=== PATIENT | female | born 1960 | race Caucasian/White ===

== ENCOUNTER 2020-12-24 09:41 | Outpatient (CLI) | payer BC, SELFPAY ==
--- NOTE | ~2020-12-24 | XR_ITS ---
XR thoracic spine 3V DATE: 12/24/2020 10:12 INDICATION: Thoracic and low back pain after lifting heavy object TECHNIQUE: AP, lateral, swimmer views COMPARISON: None FINDINGS: There is diffuse osteopenia. There is 16 degrees levoscoliosis of the thoracic spine measur ed from T2-T8. There is mild loss of height of T9 vertebral body which may be consistent with compression fracture, likely remote. Otherwise no fracture or dislocation or bone destruction is evident. The thoracic pedicles are intact . No paraspinal soft tissue thickening. IMPRESSION: Osteopenia 16 degrees levoscoliosis of upper thoracic spine Mild loss of height of T9, likely due to remote fracture; if there is concern for recent fracture, co nsider MR thoracic spine evaluation Reviewed, dictated and finalized at location A. IMPRESSION: Osteopenia 16 degrees levoscoliosis of upper thoracic spine Mild loss of height of T9, likely due to remote fracture; if there is concern f or recent fracture, consider MR thoracic spine evaluation
--- NOTE | ~2020-12-24 | XR_ITS ---
XR lumbar spine 2-3V DATE: 12/24/2020 10:12 INDICATION: Thoracic and low back pain following lifting of heavy object TECHNIQUE: AP, lateral, coned lateral lumbosacral views COMPARISON: None FINDINGS: There is diffuse osteopenia. Included lower thoracic and lumbar pedicles are intact. No fracture or bone destruction is evident. L umbar and upper sacral interspaces appear well preserved. No spondylolisthesis. The sacroiliac joints appear normal. Abdominal aortic calcification. No apparent aneurysm is noted. IMPRESSION: Diffuse osteopenia Reviewed, dictated and finalized at location A. IMPRESSION: Diffuse osteopenia
== END 2020-12-24 09:42 | disposition home or self-care (01) ==
LOC: ANHIMG 09:47
PROVIDERS: PCP Nurse Practitioner Family; Visit Provider Nurse Practitioner Family
DX: M85.88 Other specified disorders of bone density and structure, other site (principal)
CPT/HCPCS: 72072; 72100

== ENCOUNTER 2021-01-10 13:01 | Outpatient (CLI) | payer BC, SELFPAY ==
--- NOTE | ~2021-01-10 | MR_ITS ---
EXAMINATION: MR thoracic spine wo con DATE: 01/10/2021 14:16 INDICATION: Back pain. TECHNIQUE: Magnetic resonance imaging (MRI) of the thoracic spine was performed without intravenous c ontrast. Sagittal localizer T1-weighted FSE of the cervical spine was obtained. Thoracic spine sequen mayo included sagittal T2-weighted FSE, sagittal T1-weighted FSE, sagittal STIR FSE, and axial T2-weig hted FSE. COMPARISON: Thoracic spine radiographs 12/24/2020. FINDINGS: There is thoracic kyphosis and 10 degrees thoracic levoscoliosis. There is a burst fracture of T9 superior endplates with 1/5 loss of height and bone marrow edema without retropulsion of bone fragments. The discs are bulging at T5-T6, T6-T7, T7-T8, and T8-T9 with mild central canal stenosis. There is multilevel mild facet joint osteoarthritis. No neural foraminal stenosis. The spinal cord si gnal intensity is normal. There is an 8 mm cyst in left kidney. IMPRESSION: 1. Subacute T9 burst fracture. 2. Mild thoracic spondylosis. 3. Thoracic kyphosis and levoscoliosis. Reviewed, dictated and finalized at location A.
== END 2021-01-10 13:02 | disposition home or self-care (01) ==
LOC: ANHIMG 13:04
PROVIDERS: PCP Nurse Practitioner Family; Visit Provider Nurse Practitioner Family
DX: R93.89 Abnormal findings on diagnostic imaging of other specified body structures (principal); M47.894 Other spondylosis, thoracic region
CPT/HCPCS: 72146

== ENCOUNTER 2022-08-18 14:43 | Emergency (ER) | payer OTHER, SELFPAY ==
--- NOTE | ~2022-08-18 | XR_ITS ---
XR lumbar spine 2-3V 08/18/2022 17:19 Indication: Low back pain after fall Procedure: 3 views lumbar spine Comparison: 12/24/2020 Findings: Bowel gas pattern nonobstructive with moderate colonic fecal loading. No fracture or trauma tic malalignment. No spondylolisthesis. There is mild disc narrowing at multiple levels. Sacral bernarda en are symmetric. Osteopenia. There is atherosclerosis of the aorta. Impression: 1: No acute abnormality of the lumbar spine. 2: Mild lumbar spondylosis. Reviewed, dictated and finalized at location A. [facility] Impression: 1: No acute abnormality of the lumbar spine. 2: Mild lumbar spondylosis.
--- NOTE | ~2022-08-18 | XR_ITS ---
XR wrist RT min 3V 08/18/2022 17:19 Indication: Right wrist pain Procedure: 5 views right wrist Comparison: No prior studies for comparison. Findings: There is an ossific derek dorsal to the carpal bones on the oblique view, suspicious for tr iquetral avulsion fracture. Osteopenia. No focal soft tissue abnormality. No foreign bodies. Scaphoid appears to be intact. Impression: 1: Possible triquetral avulsion fracture. Correlate for point tenderness.. Reviewed, dictated and finalized at location A. PARAM[facility]IC Impression: 1: Possible triquetral avulsion fracture. Correlate for point tenderness..
[2022-08-18 16:51] VITALS: BP 127/58; PULSE 68; RESP 16; TEMP 36.5; O2SAT 100
[2022-08-18 18:21] VITALS: BP 120/66; PULSE 68; RESP 18; TEMP 36.6; O2SAT 68
[2022-08-18 20:54] VITALS: BP 111/63; PULSE 72; RESP 16; TEMP 36.4; O2SAT 94
--- NOTE | 2022-08-18 21:28 | ED.FALL ---
HPI - Fall General Chief Complaint: Fall Stated Complaint: fall, back pain Time Seen by Provider: 08/18/22 21:16 History of Present Illness HPI Narrative: This is a 62-year-old female with past medical history of hypothyroidism, presenting the emergency department after a fall at work. Patient states she was walking backwards with a pallet, when she tripped, falling backwards primarily on her left side. She complains of 5 out of 10 low back pain that is gradually improving, 3 out of 10 left hip pain and 6 out of 10 right wrist pain. She denies chest pain, palpitations, difficulty breathing before or after the fall. Related Data Allergies Allergy/AdvReac Type Severity Reaction Status Date / Time ciprofloxacin Allergy Unknown Anaphylaxis Verified 10/18/21 14:27 CIPROFLOXACIN HCL Allergy Mild Uncoded 10/18/21 14:27 Review of Systems Review of Systems: CONSTITUTIONAL: Denies fever, chills, or sweats. EYES: Denies visual changes, redness, or discharge. ENT: Denies rhinorrhea, congestion, sore throat, or otalgia. CARDIOVASCULAR: Denies chest pain, palpitations, or edema. RESPIRATORY: Denies cough or dyspnea. GASTROINTESTINAL: Denies abdominal pain, nausea, vomiting, or diarrhea. GENITOURINARY: Denies dysuria or hematuria. SKIN: Denies rash or itching. MUSCULOSKELETAL: Back pain, wrist pain, left hip pain denies myalgia. NEUROLOGIC: Denies headache, numbness, dizziness, or weakness. PSYCHIATRIC: Denies anxiety or depression. PMFSH Past Medical History Medical History Hypothyroidism Family History Family History Sibling Family history of alcoholism Family history of heart disease in male family member before age 55 Mother Family history of emphysema Father Family history of heart disease in male family member before age 55 Acute myocardial infarction Cerebrovascular accident Family history of congestive heart failure Social History Social History (Updated 08/18/22 @ 21:35 by Titi Villegas MD) Smoking status: Never smoker Alcohol intake: never Substance use: never Exam Narrative: GENERAL: Well-developed, well-nourished, and in no acute distress. HEAD: Normocephalic, atraumatic. EYES: PERRLA and EOMI. ENT: Nares clear, no rhinorrhea or epistaxis. Mucous membranes moist. Oropharynx without tonsillar hypertrophy exudate or other lesions. NECK: Supple. No adenopathy or masses. No carotid bruits or JVD CHEST: Clear to auscultation. No respiratory distress. No wheezes rales or rhonchi HEART: Regular rate and rhythm. No murmur heard. Normal peripheral pulses. ABDOMEN: Soft, nontender, nondistended, normal active bowel sounds. BACK: No midline spine tenderness to palpation, step-off or crepitus EXTREMITIES: Point tenderness over the dorsal aspect of the right midline wrist without crepitus or step-off, otherwise normal range of motion and no deformity, normal range of motion of all other extremities. No edema. SKIN: Warm, dry, no rash. NEURO: No focal deficits. Alert and oriented x3. PSYCH: Normal mood and affect. Course Course Emergency Course: 21:30 - X-rays demonstrate changes consistent with avulsion fracture of the trapezium and the right wrist. Patient has point tenderness over same area consistent with fracture. X-ray of the lumbar spine is negative. Will place patient in a splint, assess for neurovascular status afterwards and plan for discharge with primary care follow-up. 22:00 - Patient neurovascularly intact after splint placement. Discussed return emergency precautions including signs/symptoms of neurovascular compromise and infection. The patient voiced understanding is comfortable with plan. All questions answered to her satisfaction. Vital Signs Vital signs: Vital Signs Temperature 97.7 F 08/18/22 16:51 Pulse Rate 68 08/18/22 16:51 Respiratory Rate 16
== END 2022-08-18 22:23 | disposition home or self-care (01) ==
PROVIDERS: Emergency Provider Preventive Medicine Aerospace Medicine; PCP Nurse Practitioner Family
DX: S62.111A Displaced fracture of triquetrum [cuneiform] bone, right wrist, initial encounter for closed fracture (principal); S39.92XA Unspecified injury of lower back, initial encounter; E03.9 Hypothyroidism, unspecified; W01.0XXA Fall on same level from slipping, tripping and stumbling without subsequent striking against object, initial encounter
CPT/HCPCS: 29125; 72100; 73110; 99284

== ENCOUNTER 2022-12-26 12:47 | Emergency (ER) | payer OTHER, SELFPAY ==
--- NOTE | ~2022-12-26 | XR_ITS ---
EXAMINATION: XR chest 1V DATE: 12/26/2022 14:02 INDICATION: Left arm pain. Leg weakness. TECHNIQUE: A single frontal view of the chest was obtained. COMPARISON: Chest single view 01/06/2019 FINDINGS: Calcified pulmonary nodules are consistent with old granulomatous disease. No pleural effus ion or pneumothorax. The heart size is normal. IMPRESSION: 1. No acute cardiopulmonary disease. Reviewed, dictated and finalized at location A.
--- NOTE | ~2022-12-26 | CT_ITS ---
CT ANGIOGRAM NECK AND HEAD History: Left leg weakness. Technique: Axial noncontrast imaging of the brain was performed. Serial spiral axial images through t he head and neck were then obtained during arterial phase IV injection of 100 cc of Omnipaque 350. 3- D postprocessing and MIP images were then reconstructed on the remote workstation. Dose reduction ronel hnique was used on this scan by utilizing automated exposure control and iterative reconstruction ronel hnique. The dose-length product (DLP) was 1439.90 mGy-cm. CTA neck findings: Bilateral vertebral are patent. Bilateral common carotid, internal carotid, and e xternal carotid arteries are patent. No large vessel occlusion. No stenosis or aneurysm. The proximal right internal carotid artery demonstrates 0% stenosis relative to the normal distal artery lumen di ameter. The proximal left internal carotid artery demonstrates 0% stenosis relative to the normal dis alfonso artery lumen diameter. CTA head findings: Distal vertebral arteries, basilar artery, and posterior cerebral arteries are pat ent. Distal internal carotid arteries, middle cerebral arteries, and anterior cerebral arteries are p atent. No large vessel occlusion. No aneurysm. Axial noncontrast imaging of the right demonstrates no significant abnormality. Impression: No significant abnormality seen. Reviewed, dictated and finalized at location . Impression: No significant abnormality seen.
[2022-12-26 12:55] VITALS: BP 129/68; PULSE 72; RESP 20; TEMP 36.8; O2SAT 100
[2022-12-26 13:26] VITALS: BP 137/96; PULSE 78; RESP 18; O2SAT 100
--- NOTE | 2022-12-26 13:26 | ECG_ITS ---
Measurements Intervals Nixon Rate: 66 P: 60 NM: 136 QRS: 51 QRSD: 88 T: 66 QT: 354 QTc: 373 Interpretive Statements SINUS RHYTHM POSSIBLE LEFT ATRIAL ENLARGEMENT BASELINE ARTIFACT- I, II, III, AVR, AVL, AVF, V1-V2 BORDERLINE ECG NO PREVIOUS ECG AVAILABLE FOR COMPARISON Electronically Signed On 12-26-2022 15:30:35 CDT by Ariel Weller D.O.
[2022-12-26 13:36] LABS: Basophils Absolute Auto 0.1 K/mm3 (0.0-0.1); Basophils Percent Auto 0.8 % (0.2-1.2); Eosinophils Absolute Auto 0.2 K/mm3 (0-0.3); Eosinophils Percent Auto 3.1 % (0-4.4); Hematocrit 38.9 % (37.0-47.0); Hemoglobin 12.8 g/dL (12.0-15.0); Immature Granulocyte Absolute 0.02 K/mm3 (0.00-0.031); Immature Granulocyte Percent A 0.3 % (0-0.5); Lymphocytes Absolute Auto 2.46 K/mm3 (0.9-3.2); Lymphocytes Percent Auto 33.2 % (18.3-44.2); Mean Corpuscular HGB Conc 32.9 g/dl (32-36); Mean Corpuscular Hemoglobin 32.7 pg (26-34); Mean Corpuscular Volume 99.5 fl (80-100); Mean Platelet Volume 9.6 fl (7.4-10.4); Monocytes Absolute Auto 0.4 K/mm3 (0.1-0.6); Monocytes Percent Auto 5.5 % (2.6-8.5); Neutrophils Absolute Auto 4.2 K/mm3 (1.3-6.7); Neutrophils Percent Auto 57.1 % (45.5-73.1); Platelet Count Result 339 k/mm3 (150-375); Red Blood Count 3.91 M/mm3 (4.2-5.4); Red Cell Distribution Width 13.2 % (11.5-14.5); White Blood Count 7.4 K/mm3 (4.5-10.0)
--- NOTE | 2022-12-26 13:44 | ED.GENADULT ---
HPI - General Adult General Chief complaint: Neuro Symptoms/Deficit Stated complaint: maybe having a tia Time Seen by Provider: 12/26/22 13:15 History of Present Illness HPI narrative: 62-year-old female with history of TIA presented the emergency department for evaluation of left foot numbness that occurred while she was walking at approximately 12:00. Patient states afterwards then she developed some left arm pain, patient denies any left arm numbness. Patient does have a prior history of TIA approximately 8 years ago. Upon arrival to the ED patient denies any current numbness or weakness. Patient states she was having some left arm pain but in the ED patient states that all arm pain has resolved. Patient denies any current chest pain or shortness of breath. Related Data Allergies Allergy/AdvReac Type Severity Reaction Status Date / Time ciprofloxacin Allergy Unknown Anaphylaxis Verified 12/26/22 13:29 naproxen [From Aleve] Allergy Swelling Verified 12/26/22 13:29 Review of Systems Review of Systems: All systems reviewed & are unremarkable except as noted in HPI and below PMFSH Past Medical History Medical History Hypothyroidism Family History Family History Sibling Family history of alcoholism Family history of heart disease in male family member before age 55 Mother Family history of emphysema Father Family history of heart disease in male family member before age 55 Acute myocardial infarction Cerebrovascular accident Family history of congestive heart failure Social History Social History (Updated 08/18/22 @ 21:35 by Titi Villegas MD) Smoking status: Never smoker Alcohol intake: never Substance use: never Exam Narrative: APPEARANCE: Well appearing, no pain, no distress, well-nourished. HEAD: normocephalic, atraumatic. EYES: PERRLA/EOMI, conjunctivae clear. NOSE: Normal no drainage EARS:TMS clear with good light reflex. THROAT: Pharynx clear, no exudate. NECK: Supple. No adenopathy, no masses. RESPIRATORY: Airway patent, respirations nonlabored. Clear to auscultation bilaterally, no rales, rhonchi, wheezing. CARDIOVASCULAR: Regular rate and rhythm without murmurs rubs or gallops. ABDOMINAL: Soft, nontender, nondistended, normal bowel sounds MUSCULOSKELETAL: Moves all extremities. Strength/ROM intact, No edema, No calf tenderness. NEURO: Alert. Cranial nerves II through XII intact. Grossly intact SKIN: Warm, dry. Normal Color PSYCHIATRIC: Normal affect/mood. Course Course Emergency Course: 62-year-old female presenting to the ED for evaluation intermittent left leg numbness. Patient was afebrile with no leukocytosis. Patient's CMP was similar to her baseline. Chest x-ray showed no acute cardiopulmonary malady. Patient had negative serial troponins EKG showed normal sinus rhythm. Head CT showed no evidence of acute stroke. Due to patient having prior history of TIA and having a 10 to 15-minute episode of left foot numbness patient was advised to stay for further work-up including an MRI. Case had been discussed with the hospitalist and with the neurologist and patient was accepted for admission. Patient declined to stay for evaluation. Patient was advised on the possibility of having a more severe and life-threatening stroke but patient preferred to be discharged to home. Patient's family member was present during this conversation. Patient was signed out AMA and patient was encouraged to return to the ED to complete her medical work-up and patient was also encouraged to follow-up with her primary care physician. Patient was asymptomatic and was well-appearing at time of discharge. Vital Signs Vital signs: Vital Signs Temperature 98.2 F 12/26/22 12:55 Pulse Rate 72 12/26/22 12:55 Respiratory Rate 20 12/26/22 12:55 Blood Pressure 129/68 12/26/22 12:55
[2022-12-26 13:45] LABS: Alanine Aminotransferase 19 U/L (6-35); Albumin Level 4.4 g/dL (3.5-5.1); Alkaline Phosphatase 83 U/L (38-126); Anion Gap 7 mmol/L (8-16); Aspartate Amino Transferase 25 U/L (14-36); Bilirubin,Total 0.6 mg/dL (0.2-1.3); Blood Urea Nitrogen 8 mg/dL (7-17); Calcium 9.1 mg/dL (8.4-10.2); Carbon Dioxide 26 mmol/L (22-30); Chloride 102 mmol/L (98-107); Estimated CRCL calculation 58 ml/min; Estimated Glomerular Filt Rate > 60; Glucose 79 mg/dL (65-110); Potassium 3.4 mmol/L (3.4-5.0); Sodium 135 mmol/L (137-145)
[2022-12-26 13:48] LABS: Prothrombin Time 13.2 Seconds (11.1-14.7)
[2022-12-26 13:49] LABS: Estimated CRCL calculation 51 ml/min; Estimated Glomerular Filt Rate > 60
[2022-12-26 13:49] LABS: Partial Thromboplastin Time 31.2 SECONDS (22.3-36.8)
[2022-12-26 13:56] LABS: Troponin I < 0.012 ng/mL (0.000-0.034)
[2022-12-26 16:03] VITALS: BP 145/78; PULSE 75; RESP 16; O2SAT 97
[2022-12-26 16:43] VITALS: BP 138/72; PULSE 82; RESP 16; O2SAT 100
== END 2022-12-26 16:47 | disposition left against medical advice (07) ==
PROVIDERS: Emergency Provider Emergency Medicine; PCP Nurse Practitioner Family
DX: G45.9 Transient cerebral ischemic attack, unspecified (principal); E03.9 Hypothyroidism, unspecified
CPT/HCPCS: 36415; 70496; 70498; 71045; 80053; 84484; 85025; 85610; 85730; 93005; 99284; Q9967

== ENCOUNTER 2023-01-03 08:29 | Emergency (ER) | payer OTHER, SELFPAY ==
--- NOTE | ~2023-01-03 | CT_ITS ---
EXAMINATION: CT BRAIN W/O DATE: 01/03/2023 09:52 INDICATION: Left-sided tingling. TECHNIQUE: Computed tomography (CT) of the head was performed without intravenous contrast. The dose- length product was 605.33 mGy-cm. Automated exposure control and iterative reconstruction technique w ere employed. COMPARISON: No prior studies for comparison. FINDINGS: Normal brain parenchymal volume for age. Normal boucher-white differentiation. No acute intrac ranial hemorrhage, infarction, mass or mass effect. No ventriculomegaly or midline shift. Midline sagittal images demonstrate a normal corpus callosum, c raniovertebral junction and sella turcica. Basilar cisterns are patent. Paranasal sinuses and mastoids are pneumatized. No depressed skull fractures. IMPRESSION: 1. No acute intracranial abnormality. Reviewed, dictated and finalized at location L.
[2023-01-03 08:33] VITALS: BP 146/74; PULSE 75; RESP 16; TEMP 36.2; O2SAT 98
[2023-01-03 09:31] VITALS: BP 117/66; PULSE 68; RESP 19; O2SAT 97
[2023-01-03 09:41] VITALS: PULSE 76
[2023-01-03 09:53] LABS: Basophils Percent Auto 0.6 % (0.2-1.2); Eosinophils Absolute Auto 0.2 K/mm3 (0-0.3); Eosinophils Percent Auto 2.3 % (0-4.4); Hematocrit 39.8 % (37.0-47.0); Immature Granulocyte Absolute 0.01 K/mm3 (0.00-0.031); Immature Granulocyte Percent A 0.2 % (0-0.5); Lymphocytes Absolute Auto 2.05 K/mm3 (0.9-3.2); Lymphocytes Percent Auto 31.5 % (18.3-44.2); Mean Corpuscular HGB Conc 32.7 g/dl (32-36); Mean Corpuscular Hemoglobin 32.4 pg (26-34); Mean Corpuscular Volume 99.3 fl (80-100); Mean Platelet Volume 9.6 fl (7.4-10.4); Monocytes Absolute Auto 0.3 K/mm3 (0.1-0.6); Monocytes Percent Auto 4.9 % (2.6-8.5); Neutrophils Absolute Auto 3.9 K/mm3 (1.3-6.7); Neutrophils Percent Auto 60.5 % (45.5-73.1); Platelet Count Result 315 k/mm3 (150-375); Red Blood Count 4.01 M/mm3 (4.2-5.4); White Blood Count 6.5 K/mm3 (4.5-10.0)
[2023-01-03 10:02] LABS: Alanine Aminotransferase 17 U/L (6-35); Albumin Level 3.9 g/dL (3.5-5.1); Alkaline Phosphatase 70 U/L (38-126); Anion Gap 3 mmol/L (8-16); Aspartate Amino Transferase 25 U/L (14-36); Bilirubin,Total 0.5 mg/dL (0.2-1.3); Blood Urea Nitrogen 13 mg/dL (7-17); Carbon Dioxide 30 mmol/L (22-30); Chloride 104 mmol/L (98-107); Estimated CRCL calculation 50 ml/min; Estimated Glomerular Filt Rate > 60; Glucose 113 mg/dL (65-110); Potassium 3.3 mmol/L (3.4-5.0); Sodium 137 mmol/L (137-145)
[2023-01-03 10:16] LABS: Troponin I < 0.012 ng/mL (0.000-0.034)
[2023-01-03 10:25] LABS: INR 0.9; Prothrombin Time 12.9 Seconds (11.1-14.7)
--- NOTE | 2023-01-03 11:23 | ED.NEUROSD ---
HPI - Neuro Symptoms/Deficit General Chief Complaint: Neuro Symptoms/Deficit Stated Complaint: left arm, leg numbness Time Seen by Provider: 01/03/23 09:35 Source: patient Mode of arrival: ambulatory Limitations: no limitations History of Present Illness HPI Narrative: 62-year-old here with complaints of left arm and left leg tightening and weird feeling for past few days. Patient states that she was seen here on Monday was diagnosed with TIA. However since then her symptoms have been progressively getting more frequent she states that her arm and the leg gets squeezing pain. She states her brain and her legs do not coordinate. She denied any headache. No motor weakness. Onset (ago): day(s) (3) Location: left arm and left leg History of same: Yes Severity: moderate Quality: intermittent Relieving factors: none Exacerbating factors: none Context: gradual onset On Anticoagulants: No Associated symptoms: denies other symptoms Related Data Allergies Allergy/AdvReac Type Severity Reaction Status Date / Time ciprofloxacin Allergy Unknown Anaphylaxis Verified 12/26/22 13:29 naproxen [From Aleve] Allergy Swelling Verified 12/26/22 13:29 Review of Systems Review of Systems: All systems reviewed & are unremarkable except as noted in HPI and below Constitutional: Constitutional: Reports no additional constitutional complaints Eyes: Eyes: Reports no additional eye complaints ENT: Reports system reviewed and no additional complaints, except as documented Cardiovascular: Cardiovascular: Reports no additional cardiovascular complaints Respiratory: Respiratory: Reports no additional respiratory complaints Gastrointestinal: Gastrointestinal: Reports no additional gastrointestinal complaints Musculoskeletal: Musculoskeletal: Reports no additional musculoskeletal complaints Neurologic: Reports as per HPI PMFSH Past Medical History Medical History Hypothyroidism Family History Family History Sibling Family history of alcoholism Family history of heart disease in male family member before age 55 Mother Family history of emphysema Father Family history of heart disease in male family member before age 55 Acute myocardial infarction Cerebrovascular accident Family history of congestive heart failure Social History Social History Smoking status: Never smoker Alcohol intake: never Substance use: never Exam Narrative: GENERAL: Well-appearing, well-nourished, and in no acute distress. HEAD: Normocephalic, atraumatic. EYES: PERRLA and EOMI. NECK: Supple. CHEST: Clear to auscultation. No respiratory distress. HEART: Regular rate and rhythm. No murmur heard. Normal peripheral pulses. ABDOMEN: Soft, nontender, nondistended, normal active bowel sounds. EXTREMITIES: Normal range of motion. No edema. SKIN: Warm, dry, no rash. NEURO: No focal deficits. Alert and oriented x3. PSYCH: Normal mood and affect. Course Course Emergency Course: Notified patient about her lab work, CT findings. I discussed with Dr. Frederick recommended admission for MRI. Discussed with the Dr. Douglas accepted the patient Vital Signs Vital signs: Vital Signs Temperature 36.2 C L 01/03/23 08:33 Pulse Rate 75 01/03/23 08:33 Respiratory Rate 16 01/03/23 08:33 Blood Pressure 146/74 H 01/03/23 08:33 Pulse Oximetry 98 01/03/23 08:33 Oxygen Delivery Room Air 01/03/23 08:33 Temperature 36.2 C L 01/03/23 08:33 Pulse Rate 76 01/03/23 09:41 Respiratory Rate 19 01/03/23 09:31 Blood Pressure 117/66 01/03/23 09:31 Pulse Oximetry 97 01/03/23 09:31 Oxygen Delivery Room Air 01/03/23 09:31 MDM - Neuro Symptoms/Deficit Lab Data 01/03/23 09:45 01/03/23 09:45 Labs: Lab Results 01/03/23 Range/Units 0
[2023-01-03 12:26] VITALS: BP 111/71; PULSE 68; RESP 18; O2SAT 99
[2023-01-03 13:18] VITALS: BP 122/71; PULSE 68; RESP 16; TEMP 36.6; O2SAT 98
== END 2023-01-03 13:21 | disposition left against medical advice (07) ==
LOC: ANHED 11:46 → ANH3MEDSUR 13:16
PROVIDERS: Emergency Provider Family Medicine; PCP Nurse Practitioner Family
DX: R20.0 Anesthesia of skin (principal); E03.9 Hypothyroidism, unspecified; Z86.73 Personal history of transient ischemic attack (TIA), and cerebral infarction without residual deficits
CPT/HCPCS: 36415; 70450; 80053; 84484; 85025; 85610; 99284

== ENCOUNTER 2023-01-24 07:46 | Outpatient (CLI) | payer OTHER, SELFPAY ==
--- NOTE | ~2023-01-24 | US_ITS ---
EXAMINATION: US aorta DATE: 01/24/2023 08:11 INDICATION: Family history of abdominal aortic aneurysm, current smoker, hypercholesterolemia TECHNIQUE: Grayscale, color Doppler, and pulsed Doppler images of the aorta and common iliac arteries were obtained. COMPARISON: None. FINDINGS: Maximum vascular dimensions are as follows: Proximal aorta: 2.4 cm Mid aorta: 1.7 cm Distal aorta: 1.4 cm Right common iliac artery: 1.0 cm Left common iliac artery: 1.0 cm There is no evidence of abdominal aortic aneurysm. IMPRESSION: 1. No sonographically detected abdominal aortic aneurysm. Reviewed, dictated and finalized at location A.
== END 2023-01-24 07:47 ==
PROVIDERS: PCP Nurse Practitioner Family; Visit Provider Nurse Practitioner Family
DX: Z13.6 Encounter for screening for cardiovascular disorders (principal); Z82.49 Family history of ischemic heart disease and other diseases of the circulatory system
CPT/HCPCS: 76775

== ENCOUNTER 2023-02-03 12:40 | Emergency (ER) | payer OTHER, SELFPAY ==
--- NOTE | ~2023-02-03 | XR_ITS ---
Clinical Indication: Cough PA and lateral views of the chest: Comparison: 12/26/2022 Findings: The lungs are clear, without evidence of focal consolidation or pleural effusion. Cardiome diastinal silhouette is within normal limits. Bones and soft tissues are unremarkable. Impression: Normal chest. Reviewed, dictated and finalized at location . Impression: Normal chest.
[2023-02-03 13:08] VITALS: BP 111/61; PULSE 74; RESP 18; TEMP 35.9; O2SAT 96
--- NOTE | 2023-02-03 13:37 | ED.URI ---
HPI - URI/Sore Throat General Chief Complaint: Upper Respiratory Infection Stated Complaint: flu like symptoms Time Seen by Provider: 02/03/23 13:37 Source: patient Mode of arrival: ambulatory Limitations: no limitations History of Present Illness HPI Narrative: 62-year-old female presents with complaint of cough, nasal congestion, sore throat, fatigue, body aches, intermittent fevers, nausea vomiting for the past 5 days. Reports chest pain and shortness of breath when coughing. Taking DayQuil NyQuil cold and flu with no relief of symptoms. Is able to keep down water. Took a home COVID test that was negative. Has been smoking cigarettes for 45 years. All systems reviewed and normal except as noted above. Related Data Home Medications Medication Instructions Recorded Confirmed levothyroxine 88 mcg tablet 88 mcg PO DAILY 01/03/23 02/03/23 rosuvastatin 5 mg tablet 5 mg PO DAILY 01/03/23 02/03/23 aspirin 81 mg capsule 81 mg PO DAILY 02/03/23 02/03/23 Allergies Allergy/AdvReac Type Severity Reaction Status Date / Time ciprofloxacin Allergy Unknown Anaphylaxis Verified 02/03/23 13:21 naproxen [From Aleve] Allergy Swelling Verified 02/03/23 13:21 Review of Systems Review of Systems: CONSTITUTIONAL: Reports fever, chills, or sweats. EYES: Denies visual changes, redness, or discharge. ENT: reports rhinorrhea, congestion, sore throat. Denies otalgia. CARDIOVASCULAR: Denies chest pain, palpitations, or edema. RESPIRATORY: reports cough. Denies dyspnea. GASTROINTESTINAL: Denies abdominal pain. Reports nausea, vomiting. Denies diarrhea. GENITOURINARY: Denies dysuria or hematuria. SKIN: Denies rash or itching. MUSCULOSKELETAL: Denies back pain, joint pain, or myalgia. NEUROLOGIC: Denies headache, numbness, or weakness. PSYCHIATRIC: Denies anxiety or depression. All other systems reviewed are negative, except as documented in HPI. PENDING SALE TO [facility] Past Medical History Medical History Hypothyroidism Family History Family History Sibling Family history of alcoholism Family history of heart disease in male family member before age 55 Mother Family history of emphysema Father Family history of heart disease in male family member before age 55 Acute myocardial infarction Cerebrovascular accident Family history of congestive heart failure Social History Social History Smoking status: Never smoker Alcohol intake: never Substance use: never Comments reviewed Exam Narrative: GENERAL: This is a well-nourished, well-developed patient, in no apparent distress. HEAD: normocephalic, atraumatic. EYES: PERRL. Sclera clear/white. Vision is grossly intact. EARS: External ears normal, auditory canals clear and without drainage, TMs normal without perforation. Hearing grossly intact. NOSE: External nose normal with No nasal drainage. THROAT: Mucous membranes moist, Mild erythema. No exudates or tonsillar swelling. NECK: Neck supple, non-tender without lymphadenopathy, masses or thyromegaly. CARDIOVASCULAR: Regular rate and rhythm without murmurs, gallops, or rubs. RESPIRATORY: decreased throughout all lung toney. No wheezes, rales, or rhonchi. GASTROINTESTINAL: Abdomen soft, non-tender, nondistended. Bowel sounds are active. No hepato-splenomegaly, or palpable masses. No guarding. SKIN: warm, Dry, intact with no suspicious lesions or rash, good texture and turgor. NEURO: awake, alert, and oriented to person, place and time. There were no obvious focal neurologic abnormalities. EXTREMITIES: No joint tenderness, effusion, or edema noted. Course Course Level of Care: Express Care Visit Vital Signs Vital signs: Vital Signs Temperature 35.9 C L 02/03/23 13:08 Pulse Rate 74 02/03/23 13:08 Respiratory Rate 18 02/03/23 13:08 Blood Pre
== END 2023-02-03 14:07 | disposition home or self-care (01) ==
PROVIDERS: Emergency Provider Nurse Practitioner Family; PCP Nurse Practitioner Family
DX: B34.9 Viral infection, unspecified (principal); E03.9 Hypothyroidism, unspecified; F17.210 Nicotine dependence, cigarettes, uncomplicated
CPT/HCPCS: 71046; 87804; 99213; G0463

== ENCOUNTER 2023-11-18 09:03 | Emergency (ER) | payer OTHER, SELFPAY ==
[2023-11-18] VITALS (18 sets, daily range): BP systolic 108–132; BP diastolic 60–79; PULSE 66–89; RESP 13–20; TEMP 36.6; O2SAT 94–100
[2023-11-18 09:09] LABS: Glucose Point of Care 79 mg/dl (65-105)
[2023-11-18 09:27] LABS: Basophils Absolute Auto 0.1 K/mm3 (0.0-0.1); Basophils Percent Auto 0.4 % (0.2-1.2); Eosinophils Absolute Auto 0.4 K/mm3 (0-0.3); Eosinophils Percent Auto 3.2 % (0-4.4); Hematocrit 40.8 % (37.0-47.0); Hemoglobin 13.2 g/dL (12.0-15.0); Immature Granulocyte Absolute 0.07 K/mm3 (0.00-0.031); Immature Granulocyte Percent A 0.5 % (0-0.5); Lymphocytes Absolute Auto 3.84 K/mm3 (0.9-3.2); Mean Corpuscular HGB Conc 32.4 g/dl (32-36); Mean Corpuscular Hemoglobin 32.8 pg (26-34); Mean Corpuscular Volume 101.2 fl (80-100); Mean Platelet Volume 9.7 fl (7.4-10.4); Monocytes Absolute Auto 0.8 K/mm3 (0.1-0.6); Monocytes Percent Auto 5.9 % (2.6-8.5); Neutrophils Absolute Auto 8.1 K/mm3 (1.3-6.7); Platelet Count Result 308 k/mm3 (150-375); Red Blood Count 4.03 M/mm3 (4.2-5.4); Red Cell Distribution Width 13.2 % (11.5-14.5); White Blood Count 13.3 K/mm3 (4.5-10.0)
--- NOTE | 2023-11-18 09:36 | ED.GENADULT ---
HPI - General Adult General Chief complaint: Nausea/Vomiting/Diarrhea Stated complaint: N/V/D History of Present Illness HPI narrative: 63-year-old female presenting to the emergency department for evaluation of increased generalized weakness with associated nausea and diarrhea. Patient states that yesterday in the afternoon GB gag and having some generalized weakness and tiredness and patient took a nap. Patient states she woke up at 9:30 p.m. went back to bed woke up at 4:30 a.m. and was getting ready for work. Patient states while at work she had onset some nausea and frequent stools. Patient states that she began to feel lightheaded diaphoretic and confused. EMS was called and her blood sugar was found to be 60. Patient was treated with dextrose p.o. and route. Upon arrival emergency department patient is alert oriented and denies any current abdominal pain. Patient denies any current chest pain or shortness of breath. Patient was treated with Zofran and route and states that her nausea has since resolved. Patient reports that she did not have anything to eat last night Patient was recently on a 20 mg 5 day steroid burst for neck pain. Related Data Home Medications Medication Instructions Recorded Confirmed rosuvastatin 5 mg tablet 5 mg PO DAILY 01/03/23 02/03/23 aspirin 81 mg capsule 81 mg PO DAILY 02/03/23 02/03/23 Allergies Allergy/AdvReac Type Severity Reaction Status Date / Time ciprofloxacin Allergy Unknown Anaphylaxis Verified 11/18/23 09:04 naproxen [From Aleve] Allergy Swelling Verified 11/18/23 09:04 Review of Systems Review of Systems: All systems reviewed & are unremarkable except as noted in HPI and below [facility] Past Medical History Medical History COPD (chronic obstructive pulmonary disease) History of TIA (transient ischemic attack) Hyperlipidemia Hypothyroidism Insomnia Major depression, recurrent Syncopal episodes Tobacco user Surgical History Surgical History H/O dilation and curettage H/O LEEP Family History Family History Sibling Family history of alcoholism Family history of heart disease in male family member before age 55 Hypertension Alcoholism Mother Family history of emphysema Thyroid disease Cerebrovascular accident Hypertension Alcoholism Heart disease Father Family history of heart disease in male family member before age 55 Acute myocardial infarction Cerebrovascular accident Family history of congestive heart failure Grandparent Cerebrovascular accident Social History Social History Smoking packs per day: 1 Smoking cigarettes per day: 20.0 Smoking status: Current every day smoker Tobacco type: cigarettes Alcohol intake: never Substance use: current Substance use type: marijuana Last use: every night for sleeping Lack of Transportation: No Lack of Food: Never True Current Housing: I Have Housing Concerned About Future Housing: No Difficulty Paying Gas/Electric Bills: No Difficulty Paying for Meds: No Currently Unemployed: No Education: High School Diploma/GED Difficulty w/ Childcare or Family Care: No Living arrangements: alone Occupation/Education: occupation Exam Narrative: APPEARANCE: Well appearing, no pain, no distress, well-nourished. HEAD: normocephalic, atraumatic. EYES: PERRLA/EOMI, conjunctivae clear. NOSE: Normal no drainage EARS:TMS clear with good light reflex. THROAT: Pharynx clear, no exudate. NECK: Supple. No adenopathy, no masses. RESPIRATORY: Airway patent, respirations nonlabored. Clear to auscultation bilaterally, no rales, rhonchi, wheezing. CARDIOVASCULAR: Regular rate and rhythm without murmurs rubs or gallops. ABDOMINAL: Soft, nontender, nondistended, normal bowel sounds MUSCULOSKELETAL: Moves all extremities.
[2023-11-18 09:38] LABS: Alanine Aminotransferase 15 U/L (6-35); Albumin Level 3.6 g/dL (3.5-5.1); Alkaline Phosphatase 67 U/L (38-126); Anion Gap 2 mmol/L (4-12); Aspartate Amino Transferase 19 U/L (14-36); Bilirubin,Total 0.6 mg/dL (0.2-1.3); Blood Urea Nitrogen 18 mg/dL (7-17); Calcium 8.8 mg/dL (8.4-10.2); Carbon Dioxide 31 mmol/L (22-30); Chloride 107 mmol/L (98-107); Estimated CRCL calculation 50 ml/min; Estimated Glomerular Filt Rate > 60; Glucose 79 mg/dL (65-110); Lipase 74 U/L (23-300); Potassium 3.4 mmol/L (3.4-5.0); Sodium 140 mmol/L (137-145)
[2023-11-18 10:04] LABS: Appearance Urine Clear (Clear); Bilirubin Urine Negative (Negative); Blood Urine Negative (Negative); Color Urine Yellow (Yellow); Glucose Urine UA Negative (Negative); Ketones Urine Negative (Negative); Leukocyte Esterase Ur Negative LEU/UL (Negative); Nitrate Urine Negative (Negative); Protein Urine Negative (Negative); Specific Grav Ur 1.019 (1.001-1.035); pH Urine 8.5 (5.0-9.0)
[2023-11-18 10:09] LABS: Add Urine Microscopic? NO
[2023-11-18 10:10] LABS: Influenza A QL RT-PCR Negative (Negative); Influenza B QL RT-PCR Negative (Negative); RSV RNA, RT-PCR Negative (Negative); SARS-CoV-2 RNA PCR Negative (Negative)
[2023-11-18] MEDS: SODIUM CHLORIDE 0.9% IV 1,000 ML 999 ML IV CONT (10:15)
[2023-11-18 12:31] LABS: Glucose Point of Care 124 mg/dl (65-105)
== END 2023-11-18 12:45 | disposition home or self-care (01) ==
PROVIDERS: Emergency Provider Emergency Medicine; PCP Nurse Practitioner Family
DX: E16.2 Hypoglycemia, unspecified (principal); Z20.822 Contact with and (suspected) exposure to COVID-19; J44.9 Chronic obstructive pulmonary disease, unspecified; E78.5 Hyperlipidemia, unspecified; E03.9 Hypothyroidism, unspecified; F33.9 Major depressive disorder, recurrent, unspecified; F17.210 Nicotine dependence, cigarettes, uncomplicated; Z86.73 Personal history of transient ischemic attack (TIA), and cerebral infarction without residual deficits; Z79.82 Long term (current) use of aspirin
CPT/HCPCS: 36415; 80053; 81003; 82948; 83690; 85025; 87637; 96360; 99283; J7030

== ENCOUNTER 2024-09-28 14:11 | Emergency (ER) | payer OTHER, SELFPAY ==
--- NOTE | ~2024-09-28 | CT_ITS ---
CTA brain carotid Ordering provider: Edgar Carlin PA-C History: . Dizziness, rule out LVO . Comparison: None. Technique: CT angiogram head and neck was performed following timed intravenous injection of contrast . Thin slice axial images and reformatted coronal images were obtained. Three dimensional reformatted images of the brain were also obtained using a MovieSet workstation. DLP: 1493 mGy-cm FINDINGS: HEAD: --ANTERIOR AND MIDDLE CEREBRAL ARTERIES AND BRANCHES: Normal caliber and contour. --INTRACRANIAL INTERNAL CAROTID ARTERIES: Mild atheromatous disease (right greater than left) without significant stenosis. No occlusion. --BASILAR ARTERY AND BRANCHES: Normal caliber and contour. No significant atheromatous disease. --POSTERIOR CEREBRAL ARTERIES: Normal caliber and contour --POSTERIOR COMMUNICATING ARTERIES: Not well visualized likely related to congenital absence or small size. --ANEURYSM: None visualized. --BRAIN: The ventricles are normal in size, shape and position. There is no mass, mass effect or midline shift. There is no abnormal extra-axial fluid collection or intracranial hemorrhage. Visualized paranasal sinuses are clear. The mastoid air cells are well aerated. No acute displaced fractures within the overlying cranium. NECK: --RIGHT CERVICAL CAROTID SYSTEM: Mild atheromatous disease of the carotid bulb and proximal internal carotid artery without significant stenosis. Percent stenosis per NASCET criteria is 0% No carotid d issection. --LEFT CERVICAL CAROTID SYSTEM: Mild atheromatous disease of the carotid bulb and proximal internal c arotid artery without significant stenosis. Percent stenosis per NASCET criteria is 0% No carotid di ssection. --VERTEBRAL ARTERIES: Normal caliber and contour. Right vertebral artery is dominant. --VISUALIZED AORTIC ARCH AND BRANCHING VESSELS: Mild atheromatous disease but no significant stenosis . --SOFT TISSUES: Normal. --CERVICAL SPINE: Age advanced degenerative changes. IMPRESSION: 1. Unremarkable CTA head of the and neck. Percent stenosis per NASCET criteria is 0% 2. No large vessel occlusion Reviewed, dictated and finalized at location [facility]
[2024-09-28 14:13] VITALS: BP 157/84; PULSE 69; RESP 18; TEMP 36.8; O2SAT 99
--- OUTSIDE RECORDS SUMMARY | 2024-09-28 14:14 | XMS_ITS | Encounter Summary ---
Author Organization [facility] Address 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) Social History Tobacco Use Types Packs/Day Years Used Date Smoking Tobacco: Never Assessed Comments Unknown Sex and Gender Information Value Date Recorded Sex Assigned at Not on file Legal Sex Female 5:20 AM REAL ESTATE JOB TITLES Gender Identity Not on file Sexual Orientation Not on file documented as of this encounter Plan of Treatment Not on file documented as of this encounter Procedures Procedure Name Priority Date/Time Associated Diagnosis Comments T3 FREE Routine 09/06/2006 12:05 PM REAL ESTATE JOB TITLES TSH Routine 09/06/2006 12:05 PM REAL ESTATE JOB TITLES T4 FREE Routine 09/06/2006 12:05 PM REAL ESTATE JOB TITLES documented in this encounter Results * T3 FREE (09/06/2006 12:05 PM REAL ESTATE JOB TITLES) T3 FREE 3.6 2.5 - 4.4 pg/mL INTERFACE SYSTEM 09/06/2006 12:0 5 PM REAL ESTATE JOB TITLES Gogo Dominguez MD CHEMISTRY ORDERABLES Edited Performing Organization Address [facility] de Phone Number INTERFACE SYSTEM Refer to clinic/hospital department * (ABNORMAL) TSH (09/06/2006 12:05 PM REAL ESTATE JOB TITLES) TSH 0.10(L) 0.27 - 4.20 uU/mL INTERFACE SYSTEM 09/06/2006 12:0 5 PM REAL ESTATE JOB TITLES Gogo Dominguez MD CHEMISTRY ORDERABLES Edited Performing Organization Address [facility] de Phone Number INTERFACE SYSTEM Refer to clinic/hospital department * (ABNORMAL) T4 FREE (09/06/2006 12:05 PM REAL ESTATE JOB TITLES) T4 FREE 2.0(H) 0.9 - 1.7 ng/dL INTERFACE SYSTEM 09/06/2006 12:0 5 PM REAL ESTATE JOB TITLES Gogo Dominguez MD CHEMISTRY ORDERABLES Edited Performing Organization Address [facility] Phone Number INTERFACE SYSTEM Refer to clinic/hospital department documented in this encounter Visit Diagnoses Diagnosis Toxic nodular goiter, unspecified type, without mention of thyrotoxic crisis or storm- Primary documented in this encounter Care Teams Cement Crusher Operator Relationship Specialty Start Date End Date Gogo Dominguez MD PCP - General Endocrinology 12/02/09 01/04/23 documented as of this encounter
--- OUTSIDE RECORDS SUMMARY | 2024-09-28 14:14 | XMS_ITS | Encounter Summary ---
Author Organization [facility] Address [address] [place] [address] Care Team Providers Care Thinner Sprayer Name Role Phone Gogo Dominguez MD Primary Care Provider Encounter Details Date Type Department Care Team (Latest Contact Info) Description 04/22/2008 Outpatient Historical HIS [facility] Gogo Diop, [address] [address] Unspecified Hypothyroidism Social History Tobacco Use Types Packs/Day Years Used Date Smoking Tobacco: Never Assessed Comments Unknown Sex and Gender Information Value Date Recorded Sex Assigned at Not on file Legal Sex Female 5:20 AM REGISTERED APPRAISER Gender Identity Not on file Sexual Orientation Not on file documented as of this encounter Plan of Treatment Not on file documented as of this encounter Procedures Procedure Name Priority Date/Time Associated Diagnosis Comments T3 FREE Routine 04/22/2008 1:08 PM CDT TSH Routine 04/22/2008 1:08 PM CDT T4 FREE Routine 04/22/2008 1:08 PM CDT documented in this encounter Results * TSH (04/22/2008 1:08 PM CDT) TSH 0.54 0.27 - 4.20 uU/mL [facility] Blood specimen (specimen) 04/22/2008 1:08 PM CDT 04/22/2008 1:47 PM CDT us Gogo Dominguez MD CHEMISTRY ORDERABLES Final Result Performing Organization Address [facility] Phone Number INTERFACE SYSTEM Refer to clinic/hospital department [facility] CLIA# [id number] [address] [place] [address] * T3 FREE (04/22/2008 1:08 PM CDT) T3 FREE 3.1 2.5 - 4.4 pg/mL [facility] Blood specimen (specimen) 04/22/2008 1:08 PM CDT 04/22/2008 1:47 PM CDT us Gogo Dominguez MD CHEMISTRY ORDERABLES Final Result Performing Organization Address [facility] Phone Number INTERFACE SYSTEM Refer to clinic/hospital department [facility] CLIA# [id number] [address] [place] [address] * (ABNORMAL) T4 FREE (04/22/2008 1:08 PM CDT) T4 FREE 1.8(H) 0.9 - 1.7 ng/dL [facility] Blood specimen (specimen) 04/22/2008 1:08 PM CDT 04/22/2008 1:47 PM CDT us Gogo Dominguez MD CHEMISTRY ORDERABLES Final Result Performing Organization Address [facility] Phone Number INTERFACE SYSTEM Refer to clinic/hospital department [facility] CLIA# [id number] [address] [place] [address] documented in this encounter Visit Diagnoses Diagnosis Unspecified hypothyroidism documented in this encounter Care Teams Thinner Sprayer Relationship Specialty Start Date End Date Gogo Dominguez MD PCP - General Endocrinology 12/02/09 01/04/23 documented as of this encounter
--- OUTSIDE RECORDS SUMMARY | 2024-09-28 14:14 | XMS_ITS | Encounter Summary ---
Author Organization [facility] Address [address] [place] [address] Care Team Providers Care Swimming Coach Name Role Phone Gogo Dominguez MD Primary Care Provider Encounter Details Date Type Department Care Team (Latest Contact Info) Description 08/24/2007 Outpatient Historical HIS [facility] Gogo Diop, [address] [address] Unspecified Hypothyroidism Social History Tobacco Use Types Packs/Day Years Used Date Smoking Tobacco: Never Assessed Comments Unknown Sex and Gender Information Value Date Recorded Sex Assigned at Not on file Legal Sex Female 5:20 AM ACID CUTTER Gender Identity Not on file Sexual Orientation Not on file documented as of this encounter Plan of Treatment Not on file documented as of this encounter Procedures Procedure Name Priority Date/Time Associated Diagnosis Comments T3 FREE Routine 08/24/2007 12:28 PM ACID CUTTER TSH Routine 08/24/2007 12:28 PM ACID CUTTER T4 FREE Routine 08/24/2007 12:28 PM ACID CUTTER documented in this encounter Results * TSH (08/24/2007 12:28 PM ACID CUTTER) TSH 0.81 0.27 - 4.20 uU/mL INTERFACE SYSTEM 08/24/2007 12:2 8 PM ACID CUTTER us Gogo Dominguez MD CHEMISTRY ORDERABLES Edited Performing Organization Address City/State/[facility] de Phone Number INTERFACE SYSTEM Refer to clinic/hospital department * T3 FREE (08/24/2007 12:28 PM ACID CUTTER) T3 FREE 3.4 2.5 - 4.4 pg/mL INTERFACE SYSTEM 08/24/2007 12:2 8 PM ACID CUTTER us Gogo Dominguez MD CHEMISTRY ORDERABLES Edited Performing Organization Address City/[facility] [address] [facility] Co de Phone Number INTERFACE SYSTEM Refer to clinic/hospital department * T4 FREE (08/24/2007 12:28 PM ACID CUTTER) T4 FREE 1.6 0.9 - 1.7 ng/dL INTERFACE SYSTEM 08/24/2007 12:2 8 PM ACID CUTTER us Gogo Dominguez MD CHEMISTRY ORDERABLES Edited Performing Organization Address [facility] [address]/[facility] de Phone Number INTERFACE SYSTEM Refer to clinic/hospital department documented in this encounter Visit Diagnoses Diagnosis Unspecified hypothyroidism documented in this encounter Care Teams Swimming Coach Relationship Specialty Start Date End Date Gogo Dominguez MD PCP - General Endocrinology 12/02/09 01/04/23 documented as of this encounter
--- OUTSIDE RECORDS SUMMARY | 2024-09-28 14:14 | XMS_ITS | Encounter Summary ---
Author Organization [facility] Address [address] [place] [address] Care Team Providers Care Corrections Nurse Name Role Phone Gogo Dominguez MD Primary Care Provider Encounter Details Date Type Department Care Team (Latest Contact Info) Description 01/12/2009 Outpatient Historical HIS [facility] Gogo Diop, [address] [address] Unspecified Hypothyroidism Social History Tobacco Use Types Packs/Day Years Used Date Smoking Tobacco: Never Assessed Comments Unknown Sex and Gender Information Value Date Recorded Sex Assigned at Not on file Legal Sex Female 5:20 AM DOOR TO DOOR SELLING DISTRIBUTOR Gender Identity Not on file Sexual Orientation Not on file documented as of this encounter Plan of Treatment Not on file documented as of this encounter Procedures Procedure Name Priority Date/Time Associated Diagnosis Comments VITAMIN D 25 HYDROXY Routine 01/12/2009 9:35 AM CDT T3 FREE Routine 01/12/2009 9:35 AM CDT TSH Routine 01/12/2009 9:35 AM CDT T4 FREE Routine 01/12/2009 9:35 AM CDT COMPREHENSIVE METABOLIC PANEL Routine 01/12/2009 9:35 AM CDT documented in this encounter Results * (ABNORMAL) COMPREHENSIVE METABOLIC PANEL (01/12/2009 9:35 AM CDT) ALKALINE PHOSPHATASE 70 35 - 104 U/L [facility] BILIRUBIN TOTAL 0.4 0.2 - 1.0 mg/dL [facility] CALCIUM 9.8 8.6 - 10.2 mg/dL [facility] ALBUMIN 4.2 3.4 - 4.8 g/dL [facility] CHLORIDE 105 96 - 108 mmol/L [facility] GLUCOSE 69 65 - 99 mg/dL [facility] TOTAL PROTEIN 7.1 6.3 - 8.6 g/dL [facility] POTASSIUM 3.9 3.5 - 4.9 mmol/L [facility] CREATININE 0.97(H) 0.51 - 0.95 mg/dL [facility] ALT 13 0 - 31 U/L [facility] SODIUM 141 135 - 145 mmol/L [facility] CO2 26 22 - 30 mmol/L [facility] AST 22 12 - 32 U/L [facility] BUN 8 6 - 20 mg/dL [facility] GFR, >60 >=60 mL/min/1. 7 sq meter [facility] GFR >60 >=60 mL/min/1. 7 sq meter [facility] Comment: Modification of Diet in Renal Disease (MDRD) study formula. Estimated GFR rate interpretative information for both Americans and non- Americans is available on the [facility] Intranet at: [email or web address] Select: Lab Policies and Procedures Select: Reference Ranges - GFR 01/12/2009 9:35 AM CDT 01/12/2009 9:42 AM CDT us Gogo Dominguez MD CHEMISTRY ORDERABLES Edited Performing Organization Address [facility] de Phone Number INTERFACE SYSTEM Refer to clinic/hospital department [facility] CLIA# [id number] [address] [place] [address] * T3 FREE (01/12/2009 9:35 AM CDT) T3 FREE 2.5 2.5 - 4.4 pg/mL [facility] 01/12/2009 9:35 AM CDT 01/12/2009 9:42 AM CDT us Gogo Dominguez MD CHEMISTRY ORDERABLES Final Result Performing Organization Address [facility] Phone Number INTERFACE SYSTEM Refer to clinic/hospital department [facility] CLIA# [id number] [address] [place] [address] * T4 FREE (01/12/2009 9:35 AM CDT) T4 FREE 1.3 0.9 - 1.7 ng/dL [facility] 01/12/2009 9:35 AM CDT 01/12/2009 9:42 AM CDT us Gogo Dominguez MD CHEMISTRY ORDERABLES Final Result Performing Organization Address [facility] Phone Number INTERFACE SYSTEM Refer to clinic/hospital department [facility] CLIA# [id number] [address] [place] [address] * (ABNORMAL) TSH (01/12/2009 9:35 AM CDT) TSH 13.38(H) 0.27 - 4.20 uU/mL [facility] 01/12/2009 9:35 AM CDT 01/12/2009 9:42 AM CDT us Gogo Dominguez MD CHEMISTRY ORDERABLES Final Result Performing Organization Address [facility] de Phone Number INTERFACE SYSTEM Refer to clinic/hospital department [facility] CLIA# [id number] [address] [address] * VITAMIN D 25 HYDROXY (01/12/2009 9:35 AM CDT) VITAMIN D, 25 OH, D3 43 ng/mL [facility] Comment: 25-OHD3 indicates both endogenous production and supplementation. 25-OHD2 is an indicator of exogenous sources such as diet or supplementation. Therapy is based on measurement of Total 25-OHD, with levels <20 ng/mL indicative of Vitamin D deficiency while levels between 20 ng/mL and 30 ng/mL suggest insufficiency. Optimal levels are >30 ng/mL. Lab test performed by: [facility] [address] [place] [id number] [address] SHANE OROSCO VITAMIN D, 25 OH, TOTAL 43 20 - 100 ng/mL [facility] VITAMIN D, 25 OH, D2 < 4 ng/mL [facility] 01/12/2009 9:35 AM CDT 01/12/2009 9:42 AM CDT us Gogo Dominguez MD CHEMISTRY ORDERABLES Final Result Performing Organization Address [facility] Phone Number INTERFACE SYSTEM Refer to clinic/hospital department [facility] CLIA# [id number] [address] [place] [address] documented in this encounter Visit Diagnoses Diagnosis Unspecified hypothyroidism documented in this encounter Care Teams Corrections Nurse Relationship Specialty Start Date End Date Gogo Dominguez MD PCP - General Endocrinology 12/02/09 01/04/23 documented as of this encounter
--- OUTSIDE RECORDS SUMMARY | 2024-09-28 14:14 | XMS_ITS | Clinical Summary ---
Author Organization [facility] Address [address] [place] [address] Phone Care Team Providers Care Post Anesthesia Room Nurse Name Role Phone Unavailable Primary Care Provider Unavailabl e Allergies Active Allergy Reactions Criticality Noted Date Comments Ciprofloxacin Anaphylaxis High 01/03/2023 Naproxen Hives High 01/03/2023 Medications aspirin 81 mg tablet,delayed release Take 81 mg by mouth daily. Active levothyroxine 88 mcg tablet Take 88 mcg by mouth daily in the morning. Active rosuvastatin 5 mg tablet Take 5 mg by mouth daily. Active zolpidem (AMBIEN) 5 mg tablet Take 5 mg by mouth nightly as needed for Insomnia. Active Active Problems Problem Noted Date Diagnosed Date Tobacco dependence 01/03/2023 Hyperlipidemia 01/03/2023 Hypothyroidism 01/03/2023 Arm paresthesia, left 01/03/2023 Transient alteration of awareness 01/03/2023 Subclavian artery stenosis, left 01/03/2023 Numbness and tingling of left arm and leg 2022 Family History Medical History Relation Name Comments Diabetes Brother Heart Disease Brother High Cholesterol Brother Hypertension Brother Heart Disease Father High Cholesterol Father Hypertension Father Stroke Father High Cholesterol Mother Hypertension Mother High Cholesterol Sister Relation Name Status Comments Brother Father Mother Sister Social History Tobacco Use Types Packs/Day Years Used Date Smoking Tobacco: Every Day Cigarettes 0.5 45 Smokeless Tobacco: Never Tobacco Cessation:Ready to Q uit: Not Asked; Counseling Given: Not Answered Alcohol Use Standard Drinks/Week Comments Not Currently 0 (1 standard drink = 0.6 oz pur e alcohol) Feeling Safe Answer Date Recorded Are you in a relationship wi th someone who hurts you emotionally and/or physically? No 01/04/2023 Food Insecurity Answer Date Recorded Social/Environmental Concerns No concerns Transportation Needs Answer Date Record ed Social/Environmental Concerns No concerns Housing Stability Answer Date Recorded Social/Environmental Concerns No concerns Utility Needs Answer Date Recorded Social/Environmental Concerns No concerns Comments No Sex and Gender Information Value Date Recorded Sex Assigned at Not on file Legal Sex Female 5:20 AM TERMINAL OPERATOR Gender Identity Not on file Sexual Orientation Not on file Last Filed Vital Signs Vital Sign Reading Time Taken Comments Blood Pressure 134/69 07/18/2023 3:18 PM TERMINAL OPERATOR Pulse 62 07/18/2023 3:18 PM TERMINAL OPERATOR Temperature 36.8 C (98.3 F) 01/04/2023 4:14 PM CDT Respiratory Rate 16 01/04/2023 5:12 PM CDT Oxygen Saturation 99% 07/18/2023 3:18 PM TERMINAL OPERATOR Inhaled Oxygen Concentration - - Weight 54 kg (119 lb 0.8 oz) 01/03/2023 6:11 PM CDT Height 162.6 cm (5' 4 ) 01/03/2023 6:11 PM CDT Body Mass Index 20.43 01/03/2023 6:11 PM CDT Plan of Treatment Health Maintenance Due Date Last Done Comments PNEUMOCOCCAL VACCINE 0-64 YE ARS (1 of 2 - PCV) 1981 CERVICAL CANCER SCREENING 1992 BREAST CANCER SCREENING 2002 COLORECTAL SCREENING 2007 Colorectal Cancer Screening 2007 FIT-DNA Q 3 years 2007 FIT/FOBT Q 1 year 2007 Flex Sig/CT Colonography Q 5 years 2007 ZOSTER VACCINE (1 of 2) 2012 RSV VACCINE (60+ or ) (1 - Risk 60-74 years 1-dose series) 2022 INFLUENZA VACCINE (#1) 2024 0, 05/15/2018, 05/26/2015, Additional history exists DTAP/TDAP/TD VACCINES (2 - T d or Tdap) 05/23/2028 05/23/2018 Insurance Advance Directives For more information, please contact: [phone] * Full Code (Latest Code Status on File) Date Activated Date Inactivated Comments 01/04/2023 12:26 AM 01/04/2023 9:19 PM
--- OUTSIDE RECORDS SUMMARY | 2024-09-28 14:14 | XMS_ITS | Encounter Summary ---
Author Organization [facility] Address [address] [place] [address] Care Team Providers Care Core Extruder Name Role Phone Gogo Dominguez MD Primary Care Provider Encounter Details Date Type Department Care Team (Latest Contact Info) Description 09/05/2007 Outpatient Historical [facility] Gogo Dominguez MD [address] [phone] Special Screening for Osteoporosis Social History Tobacco Use Types Packs/Day Years Used Date Smoking Tobacco: Never Assessed Comments Unknown Sex and Gender Information Value Date Recorded Sex Assigned at Not on file Legal Sex Female 5:20 AM NOTARY PUBLIC Gender Identity Not on file Sexual Orientation Not on file documented as of this encounter Plan of Treatment Not on file documented as of this encounter Visit Diagnoses Diagnosis Special screening for osteoporosis documented in this encounter Care Teams Core Extruder Relationship Specialty Start Date End Date Gogo Dominguez MD PCP - General Endocrinology 12/02/09 01/04/23 documented as of this encounter
--- NOTE | 2024-09-28 14:21 | ECG_ITS ---
Test Date: 2024-09-28 14:32:59 Measurements Intervals [place] Rate: 70 P: 56 OK: 131 QRS: 29 QRSD: 90 T: 48 QT: 373 QTc: 403 Interpretive Statements SINUS RHYTHM BASELINE ARTIFACT- I, II, III, AVR, AVL, AVF, V1-V6 NORMAL ECG No previous ECG available for comparison Electronically Signed On 09-28-2024 16:57:46 COMMUNITY NUTRITION EDUCATOR by Ariel Weller D.O.
[2024-09-28 14:26] VITALS: BP 139/93; PULSE 72; RESP 13; O2SAT 100
[2024-09-28 14:31] VITALS: PULSE 73
--- OUTSIDE RECORDS SUMMARY | 2024-09-28 14:52 | XMS_ITS | Encounter Summary ---
Author Organization [facility] Address [address] [place] [address] Care Team Providers Care Continuing Education Director Name Role Phone Gogo Dominguez MD Primary Care Provider [phone] Encounter Details Date Type Department Care Team (Latest Contact Info) Description 01/12/2009 Outpatient Historical HIS [facility] Gogo Diop, [address] [address] Unspecified Hypothyroidism Social History Tobacco Use Types Packs/Day Years Used Date Smoking Tobacco: Never Assessed Comments Unknown Sex and Gender Information Value Date Recorded Sex Assigned at Not on file Legal Sex Female 5:20 AM TAXICAB COORDINATOR Gender Identity Not on file Sexual Orientation [...] ALKALINE PHOSPHATASE 70 35 - 104 U/L [facility] BILIRUBIN TOTAL 0.4 0.2 - 1.0 mg/dL [facility] CALCIUM 9.8 8.6 - 10.2 mg/dL [facility] ALBUMIN 4.2 3.4 - 4.8 g/dL [facility] CHLORIDE 105 96 - 108 mmol/L [facility] GLUCOSE 69 65 - 99 mg/dL [facility] TOTAL PROTEIN 7.1 6.3 - 8.6 g/dL [facility] POTASSIUM 3.9 3.5 - 4.9 mmol/L [facility] CREATININE 0.97(H) 0.51 - 0.95 mg/dL [facility] ALT 13 0 - 31 U/L [facility] SODIUM 141 135 - 145 mmol/L [facility] CO2 26 22 - 30 mmol/L [facility] AST 22 12 - 32 U/L [facility] BUN 8 6 - 20 mg/dL [facility] GFR, >60 >=60 mL/min/1. 7 sq meter [facility] GFR >60 >=60 mL/min/1. 7 sq meter [facility] Comment: Modification of Diet in Renal Disease (MDRD) study formula. Estimated GFR rate interpretative information for both Americans and non- Americans is available on the [facility] Intranet at: [email or web address] Select: Lab Policies and Procedures Select: Reference Ranges - GFR 01/12/2009 9:35 AM CDT 01/12/2009 9:42 AM CDT us Gogo Dominguez MD CHEMISTRY ORDERABLES Edited Performing Organization Address [facility] de Phone Number INTERFACE SYSTEM Refer to clinic/hospital department [facility] CLIA# [id number] [address] [place] [address] * T3 FREE (01/12/2009 9:35 AM CDT) T3 FREE 2.5 2.5 - 4.4 pg/mL [facility] 01/12/2009 9:35 AM CDT 01/12/2009 9:42 AM CDT us Gogo Dominguez MD CHEMISTRY ORDERABLES Final Result Performing Organization Address [facility] Phone Number INTERFACE SYSTEM Refer to clinic/hospital department [facility] CLIA# [id number] [address] [place] [address] * T4 FREE (01/12/2009 9:35 AM CDT) T4 FREE 1.3 0.9 - 1.7 ng/dL [facility] 01/12/2009 9:35 AM CDT 01/12/2009 9:42 AM CDT us Gogo Dominguez MD CHEMISTRY ORDERABLES Final Result Performing Organization Address [facility] Phone Number INTERFACE SYSTEM Refer to clinic/hospital department [facility] CLIA# [id number] [address] [place] [address] * (ABNORMAL) TSH (01/12/2009 9:35 AM CDT) TSH 13.38(H) 0.27 - 4.20 uU/mL [facility] 01/12/2009 9:35 AM CDT 01/12/2009 9:42 AM CDT us Gogo Dominguez MD CHEMISTRY ORDERABLES Final Result Performing Organization Address [facility] de Phone Number INTERFACE SYSTEM Refer to clinic/hospital department [facility] CLIA# [id number] [address] [address] * VITAMIN D 25 HYDROXY (01/12/2009 9:35 AM CDT) VITAMIN D, 25 OH, D3 43 ng/mL [facility] Comment: 25-OHD3 indicates both endogenous production and supplementation. 25-OHD2 is an indicator of exogenous sources such as diet or supplementation. Therapy is based on measurement of Total 25-OHD, with levels <20 ng/mL indicative of Vitamin D deficiency while levels between 20 ng/mL and 30 ng/mL suggest insufficiency. Optimal levels are >30 ng/mL. Lab test performed by: [email or web address] [address] [place] [id number] [address] SHANE OROSCO VITAMIN D, 25 OH, TOTAL 43 20 - 100 ng/mL [facility] VITAMIN D, 25 OH, D2 < 4 ng/mL [facility] 01/12/2009 9:35 AM CDT 01/12/2009 9:42 AM CDT us Gogo Dominguez MD CHEMISTRY ORDERABLES Final Result Performing Organization Address [facility] Phone Number INTERFACE SYSTEM Refer to clinic/hospital department [facility] CLIA# [id number] [address] [place] [address] documented in this encounter Visit Diagnoses Diagnosis Unspecified hypothyroidism documented in this encounter Care Teams Continuing Education Director Relationship Specialty Start Date End Date Gogo Dominguez MD PCP - General Endocrinology 12/02/09 01/04/23 documented as of this encounter
--- OUTSIDE RECORDS SUMMARY | 2024-09-28 14:52 | XMS_ITS | Encounter Summary ---
Author Organization [facility] Address [address] [place] [address] Care Team Providers Care Chief Dietitian Name Role Phone Gogo Dominguez MD Primary Care Provider Encounter Details Date Type Department Care Team (Latest Contact Info) Description 08/24/2007 Outpatient Historical HIS [facility] Gogo Diop, [address] [address] Unspecified Hypothyroidism Social History Tobacco Use Types Packs/Day Years Used Date Smoking Tobacco: Never Assessed Comments Unknown Sex and Gender Information Value Date Recorded Sex Assigned at Not on file Legal Sex Female 5:20 AM POLICY LOAN CALCULATOR Gender Identity Not on file Sexual Orientation Not on file documented as of this encounter Plan of Treatment Not on file documented as of this encounter Procedures Procedure Name Priority Date/Time Associated Diagnosis Comments T3 FREE Routine 08/24/2007 12:28 PM POLICY LOAN CALCULATOR TSH Routine 08/24/2007 12:28 PM POLICY LOAN CALCULATOR T4 FREE Routine 08/24/2007 12:28 PM POLICY LOAN CALCULATOR documented in this encounter Results * TSH (08/24/2007 12:28 PM POLICY LOAN CALCULATOR) TSH 0.81 0.27 - 4.20 uU/mL INTERFACE SYSTEM 08/24/2007 12:2 8 PM POLICY LOAN CALCULATOR us Gogo Dominguez MD CHEMISTRY ORDERABLES Edited Performing Organization Address City/State/[facility] de Phone Number INTERFACE SYSTEM Refer to clinic/hospital department * T3 FREE (08/24/2007 12:28 PM POLICY LOAN CALCULATOR) T3 FREE 3.4 2.5 - 4.4 pg/mL INTERFACE SYSTEM 08/24/2007 12:2 8 PM POLICY LOAN CALCULATOR us Gogo Dominguez MD CHEMISTRY ORDERABLES Edited Performing Organization Address City/[facility] Co de Phone Number INTERFACE SYSTEM Refer to clinic/hospital department * T4 FREE (08/24/2007 12:28 PM POLICY LOAN CALCULATOR) T4 FREE 1.6 0.9 - 1.7 ng/dL INTERFACE SYSTEM 08/24/2007 12:2 8 PM POLICY LOAN CALCULATOR us Gogo Dominguez MD CHEMISTRY ORDERABLES Edited Performing Organization Address [facility] de Phone Number INTERFACE SYSTEM Refer to clinic/hospital department documented in this encounter Visit Diagnoses Diagnosis Unspecified hypothyroidism documented in this encounter Care Teams Chief Dietitian Relationship Specialty Start Date End Date Gogo Dominguez MD PCP - General Endocrinology 12/02/09 01/04/23 documented as of this encounter
--- OUTSIDE RECORDS SUMMARY | 2024-09-28 14:52 | XMS_ITS | Encounter Summary ---
Author Organization [facility] Address [address] [place] [address] Care Team Providers Care Temporary Help Agency Referral Clerk Name Role Phone Gogo Dominguez MD Primary Care Provider Encounter Details Date Type Department Care Team (Latest Contact Info) Description 09/05/2007 Outpatient Historical HIS [facility] Gogo Dominguez MD [address] [phone] Special Screening for Osteoporosis Social History Tobacco Use Types Packs/Day Years Used Date Smoking Tobacco: Never Assessed Comments Unknown Sex and Gender Information Value Date Recorded Sex Assigned at Not on file Legal Sex Female 5:20 AM SOLUTIONS EXECUTIVE SECURITY Gender Identity Not on file Sexual Orientation Not on file documented as of this encounter Plan of Treatment Not on file documented as of this encounter Visit Diagnoses Diagnosis Special screening for osteoporosis documented in this encounter Care Teams Temporary Help Agency Referral Clerk Relationship Specialty Start Date End Date Gogo Dominguez MD PCP - General Endocrinology 12/02/09 01/04/23 documented as of this encounter
--- OUTSIDE RECORDS SUMMARY | 2024-09-28 14:52 | XMS_ITS | Encounter Summary ---
Author Organization [facility] Address [address] [place] [address] Care Team Providers Care Lodge Attendant Name Role Phone Gogo Dominguez MD Primary Care Provider Encounter Details Date Type Department Care Team (Latest Contact Info) Description 04/22/2008 Outpatient Historical HIS [facility] Gogo Diop, [address] [address] Unspecified Hypothyroidism Social History Tobacco Use Types Packs/Day Years Used Date Smoking Tobacco: Never Assessed Comments Unknown Sex and Gender Information Value Date Recorded Sex Assigned at Not on file Legal Sex Female 5:20 AM MANAGER REGIONAL Gender Identity Not on file Sexual Orientation [...] CDT) TSH 0.54 0.27 - 4.20 uU/mL [facility] Blood specimen (specimen) 04/22/2008 1:08 PM CDT 04/22/2008 1:47 PM CDT us Gogo Dominguez MD CHEMISTRY ORDERABLES Final Result Performing Organization Address [facility] Phone Number INTERFACE SYSTEM Refer to clinic/hospital department [facility] CLIA# [id number] [address] [place] [address] * T3 FREE (04/22/2008 1:08 PM CDT) T3 FREE 3.1 2.5 - 4.4 pg/mL [facility] Blood specimen (specimen) 04/22/2008 1:08 PM CDT 04/22/2008 1:47 PM CDT us Gogo Dominguez MD CHEMISTRY ORDERABLES Final Result Performing Organization Address [facility] Phone Number INTERFACE SYSTEM Refer to clinic/hospital department [facility] CLIA# [id number] [address] [place] [address] * (ABNORMAL) T4 FREE (04/22/2008 1:08 PM CDT) T4 FREE 1.8(H) 0.9 - 1.7 ng/dL [facility] Blood specimen (specimen) 04/22/2008 1:08 PM CDT 04/22/2008 1:47 PM CDT us Gogo Dominguez MD CHEMISTRY ORDERABLES Final Result Performing Organization Address [facility] Phone Number INTERFACE SYSTEM Refer to clinic/hospital department [facility] CLIA# [id number] [address] [place] [address] documented in this encounter Visit Diagnoses Diagnosis Unspecified hypothyroidism documented in this encounter Care Teams Lodge Attendant Relationship Specialty Start Date End Date Gogo Dominguez MD PCP - General Endocrinology 12/02/09 01/04/23 documented as of this encounter
--- OUTSIDE RECORDS SUMMARY | 2024-09-28 14:52 | XMS_ITS | Encounter Summary ---
Author Organization [facility] Address 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) Social History Tobacco Use Types Packs/Day Years Used Date Smoking Tobacco: Never Assessed Comments Unknown Sex and Gender Information Value Date Recorded Sex Assigned at Not on file Legal Sex Female 5:20 AM DOCK LOADER Gender Identity Not on file Sexual Orientation Not on file documented as of this encounter Plan of Treatment Not on file documented as of this encounter Procedures Procedure Name Priority Date/Time Associated Diagnosis Comments T3 FREE Routine 09/06/2006 12:05 PM DOCK LOADER TSH Routine 09/06/2006 12:05 PM DOCK LOADER T4 FREE Routine 09/06/2006 12:05 PM DOCK LOADER documented in this encounter Results * T3 FREE (09/06/2006 12:05 PM DOCK LOADER) T3 FREE 3.6 2.5 - 4.4 pg/mL INTERFACE SYSTEM 09/06/2006 12:0 5 PM DOCK LOADER Gogo Dominguez MD CHEMISTRY ORDERABLES Edited Performing Organization Address [facility] de Phone Number INTERFACE SYSTEM Refer to clinic/hospital department * (ABNORMAL) TSH (09/06/2006 12:05 PM DOCK LOADER) TSH 0.10(L) 0.27 - 4.20 uU/mL INTERFACE SYSTEM 09/06/2006 12:0 5 PM DOCK LOADER Gogo Dominguez MD CHEMISTRY ORDERABLES Edited Performing Organization Address [facility] de Phone Number INTERFACE SYSTEM Refer to clinic/hospital department * (ABNORMAL) T4 FREE (09/06/2006 12:05 PM DOCK LOADER) T4 FREE 2.0(H) 0.9 - 1.7 ng/dL INTERFACE SYSTEM 09/06/2006 12:0 5 PM DOCK LOADER Gogo Dominguez MD CHEMISTRY ORDERABLES Edited Performing Organization Address [facility] Phone Number INTERFACE SYSTEM Refer to clinic/hospital department documented in this encounter Visit Diagnoses Diagnosis Toxic nodular goiter, unspecified type, without mention of thyrotoxic crisis or storm- Primary documented in this encounter Care Teams Furniture Reproducer Relationship Specialty Start Date End Date Gogo Dominguez MD PCP - General Endocrinology 12/02/09 01/04/23 documented as of this encounter
--- OUTSIDE RECORDS SUMMARY | 2024-09-28 14:52 | XMS_ITS | Clinical Summary ---
Author Organization [facility] Address [address] [place] [address] Phone Care Team Providers Care Air Motor Repairer Name Role Phone Unavailable Primary Care Provider [...] on file Legal Sex Female 5:20 AM STICKER HAND Gender Identity Not on file Sexual Orientation Not on file Last Filed Vital Signs Vital Sign Reading Time Taken Comments Blood Pressure 134/69 07/18/2023 3:18 PM STICKER HAND Pulse 62 07/18/2023 3:18 PM STICKER HAND Temperature 36.8 C (98.3 F) 01/04/2023 4:14 PM CDT Respiratory Rate 16 01/04/2023 5:12 PM CDT Oxygen Saturation 99% 07/18/2023 3:18 PM STICKER HAND Inhaled Oxygen Concentration - - Weight 54 [...] Advance Directives For more information, please contact: [phone] * Full Code (Latest Code Status on File) Date Activated Date Inactivated Comments 01/04/2023 12:26 AM 01/04/2023 9:19 PM
--- NOTE | 2024-09-28 14:56 | ED_ITS ---
HPI - Dizziness General Chief Complaint: Dizziness Stated Complaint: anxiety, nausea, R sided weakness x 1 hour Time Seen by Provider: 09/28/24 14:44 Source: patient Mode of arrival: EMS Limitations: no limitations History of Present Illness HPI Narrative: This is a 64-year-old female who presents to the ED via EMS from work today for chief complaint of sudden-onset dizziness this started while seated at work. Patient states that she was just sitting at the desk and felt like she was starting to have nausea and dizziness that came on rather abruptly. States that it felt like if she lifted her head or moved her head all it would make symptoms worse so she had to put her head down on the desk. States that she started to become anxious due to the symptoms and was having bilateral arm tingling and heaviness with the EMS crew got there. She states that those symptoms are resolving. She is not having any more shortness of breath. States that she was given Zofran en route, and overall symptoms are improving. However she states that if she turns her head to the left her dizziness comes back. Triage note mentions right-sided weakness, however patient states that she has no extremity weakness or numbness at this time. Related Data Home Medications ?Medication ?Instructions ?Recorded ?Confirmed ?Last Taken ?Type rosuvastatin 5 mg tablet 5 mg PO DAILY 01/03/23 04/24/24 Unknown History aspirin 81 mg capsule 81 mg PO DAILY 02/03/23 04/24/24 Unknown History Allergies Allergy/AdvReac Type Severity Reaction Status Date / Time ciprofloxacin Allergy Unknown Anaphylaxis Verified 09/28/24 14:33 naproxen (From Aleve) Allergy Swelling Verified 09/28/24 14:33 Review of Systems 2 Review of Systems: All systems as dictated in HPI [facility], [facility] Past Medical History Medical History COPD (chronic obstructive pulmonary disease) History of TIA (transient ischemic attack) Hyperlipidemia Hypothyroidism Insomnia Major depression, recurrent Syncopal episodes Tobacco user Surgical History Surgical History H/O dilation and curettage H/O LEEP Family History Family History (Updated 04/24/24 @ 10:31 by Delma De Souza APRN) Sibling Family history of alcoholism Family history of heart disease in male family member before age 55 Hypertension Alcoholism Bladder cancer, Onset Age: 58 brother Mother Family history of emphysema Thyroid disease Cerebrovascular accident Hypertension Alcoholism Heart disease Father Family history of heart disease in male family member before age 55 Acute myocardial infarction Cerebrovascular accident Family history of congestive heart failure Grandparent Cerebrovascular accident Social History Social History Social History: Pt is very confident in filling out medical forms. Pt has not received assistance in the last 12 months. Smoking packs per day: 1 Smoking cigarettes per day: 20.0 Smoking status: Current every day smoker Tobacco type: cigarettes Alcohol intake: never Substance use: current Substance use type: marijuana Last use: every night for sleeping Do You Feel Safe in your Home?: Yes Lack of Transportation: No Lack of Food: Never True Current Housing: I Have Housing Concerned About Future Housing: No Difficulty Paying Gas/Electric Bills: No Difficulty Paying for Meds: No Currently Unemployed: No Education: High School Diploma/GED Difficulty w/ Childcare or Family Care: No Living arrangements: alone Occupation/Education: occupation Exam 2 Narrative: GENERAL: Well-appearing, well-nourished, and in no acute distress. HEAD: Normocephalic, atraumatic. EYES: PERRLA and EOMI. ENT: Nares clear, no rhinorrhea or epistaxis. Mucous membranes moist. Oropharynx without tonsillar hypertrophy exudate or other lesions. NECK: Supple. No adenopathy or masses. CHEST: No respiratory distress. Clear to auscultation. No wheezes rales or rhonchi HEART: Regular rate and rhythm. No murmur heard. Normal peripheral pulses. ABDOMEN: Soft, nontender, nondistended, normal active bowel sounds. MSK: Normal range of motion. No edema. SKIN: Warm, dry, no rash. NEURO: Alert and oriented x4. No focal deficits. Cranial nerves 2-12 intact. Negative pronator drift bilaterally in the upper and lower extremities. 5/5 strength and sensation in the upper and lower extremities. Impulse test produces corrective saccade. Symptoms are reproducible with leftward head rotation. Symptoms are minimal with rightward rotation of the head. No nystagmus No skew deviation PSYCH: Normal mood and affect. Course Vital Signs Vital signs: Vital Signs Temperature 98.2 F 09/28/24 14:13 Pulse Rate 69 09/28/24 14:13 Respiratory Rate 18 09/28/24 14:13 Blood Pressure 157/84 H 09/28/24 14:13 Pulse Oximetry 99 09/28/24 14:13 Oxygen Delivery Room Air 09/28/24 14:13 Temperature 97.7 F 09/28/24 18:36 Pulse Rate 78 09/28/24 18:36 Respiratory Rate 12 09/28/24 18:36 Blood Pressure 115/88 09/28/24 18:36 Pulse Oximetry 96 09/28/24 18:36 Oxygen Delivery Room Air 09/28/24 14:13 MDM - Dizziness MDM Narrative Medical decision making narrative: This is a 64-year-old female who presents to the ED for chief complaint of sudden-onset dizziness that started just prior to arrival. Vitals are normal. Exam is not showing any focal neurologic deficit but is pointing towards a peripheral source of vertigo with HINTS exam. EKG shows sinus rhythm with no acute ischemia. Lab work is grossly unremarkable. CTA brain carotid: IMPRESSION: 1. Unremarkable CTA head of the and neck. Percent stenosis per NASCET criteria is 0% 2. No large vessel occlusion Patient is well-appearing on re-evaluation. Her symptoms have largely subsided. She still has some and dizziness that comes on with leftward rotation of the head which is consistent with her initial exam. She was given meclizine and Reglan p.o. here. She is feeling ready to go home at this point. Presentation does not seem consistent with CVA today due to episodic, positional nature of the vertigo. Most likely consistent with BPPV. She is ambulating without difficulty. Rx for meclizine given. Patient will be discharged in stable condition. Supportive measures discussed and return precautions given. Patient is understanding and agreeable with plan for discharge with PCP follow-up. Lab Data 09/28/24 15:57 09/28/24 16:17 Labs: Lab Results 09/28/24 09/28/24 Range/Units 15:57 16:17 WBC 6.3 (4.5-10.0) K/mm3 RBC 4.02 L (4.2-5.4) M/mm3 Hgb 12.9 (12.0-15.0) g/dL Hct 39.5 (37.0-47.0) % MCV 98.3 (80-100) fl MCH 32.1 (26-34) pg MCHC 32.7 (32-36) g/dl RDW 12.9 (11.5-14.5) % Plt Count 309 (150-375) k/mm3 MPV 9.5 (7.4-10.4) fl Immature Gran % (Auto) 0.3 (0-0.5) % Neut % (Auto) 54.0 (45.5-73.1) % Lymph % (Auto) 33.2 (18.3-44.2) % [place] % (Auto) 6.4 (2.6-8.5) % Eos % (Auto) 5.1 H (0-4.4) % Baso % (Auto) 1.0 (0.2-1.2) % Lymph # (Auto) 2.08 (0.9-3.2) K/mm3 [place] # (Auto) 0.4 (0.1-0.6) K/mm3 Eos # (Auto) 0.3 (0-0.3) K/mm3 Baso # (Auto) 0.1 (0.0-0.1) K/mm3 Abs Immat Gran (auto) 0.02 (0.00-0.031) K/mm3 Absolute Neuts (auto) 3.4 (1.3-6.7) K/mm3 Absolute Nucleated RBC 0.000 (0.0-0.012) K/mm3 Nucleated RBC % 0.0 (0.0-0.2) % PT 12.7 (11.1-14.7) Seconds INR 0.9 APTT 29.8 (22.3-36.8) Seconds Sodium 139 (137-145) mmol/L Potassium 3.6 (3.4-5.0) mmol/L Chloride 103 (98-107) mmol/L Carbon Dioxide 28 (22-30) mmol/L Anion Gap 8 (4-12) mmol/L BUN 20 H (7-17) mg/dL Creatinine 0.89 1.00 (0.7-1.0) mg/dL Estim Creat Clear Calc 50 45 ml/min Estimated GFR > 60 56 L (59 - ) Glucose 86 (65-110) mg/dL Calcium 9.4 (8.4-10.2) mg/dL Total Bilirubin 0.5 (0.2-1.3) mg/dL AST 30 (14-36) U/L ALT 31 (6-35) U/L Alkaline Phosphatase 75 (38-126) U/L Troponin I < 0.012 (0.000-0.034) ng/mL Total Protein 7.0 (6.3-8.2) g/dL Albumin 3.9 (3.5-5.1) g/dL Urine Color Yellow (Yellow) Urine Appearance Clear (Clear) Urine pH 7.0 (5.0-9.0) Ur Specific [place] 1.011 (1.001-1.035) Urine Protein Negative (Negative) mg/dL Urine Glucose (UA) Negative (Negative) mg/dL Urine Ketones Negative (Negative) mg/dL Ur Blood (Man) Negative (Negative) Urine Nitrate Negative (Negative) Urine Bilirubin Negative (Negative) Urine Urobilinogen 0.2 (<2.0) mg/dL Leukocyte Esterase Rfl Negative (Negative) TEVIN/UL Discharge Plan Discharge Clinical Impression: Benign paroxysmal positional vertigo Patient Disposition: Home, Self-Care Condition: Stable Instructions: Antibiotic Form, Dizziness (ED) Additional Instructions: Your exam today was reassuring overall. Please follow-up with PCP for vertigo. Take meclizine as needed for vertigo symptoms. If you have any new or worsening symptoms please return to the ER for further evaluation. Patient Language: Maltese Prescriptions: New meclizine 25 mg tablet 25 mg PO TID PRN (Reason: dizziness) Qty: 30 0RF No Action aspirin 81 mg Capsule 81 mg PO DAILY rosuvastatin 5 mg tablet 5 mg PO DAILY cyclobenzaprine 10 mg tablet 10 mg PO TID PRN (Reason: muscle spasm) Qty: 90 0RF levothyroxine 75 mcg tablet 75 mcg PO DAILY Qty: 90 1RF bupropion HCl 300 mg tablet extended release 24 hr 300 mg PO QAM Qty: 90 0RF zolpidem [Ambien] 5 mg tablet 5 mg PO QHS Qty: 30 0RF Rx Instructions: Max dose of 1 tab (5 mg) nightly. Follow-up/Referrals: Delma De Souza APRN [Primary Care Provider] - Stand Alone Forms: Work/School Release IP Time of Disposition: 17:50
[2024-09-28 16:00] VITALS: BP 135/75; PULSE 68; RESP 19; O2SAT 100
[2024-09-28 16:08] LABS: Basophils Absolute Auto 0.1 K/mm3 (0.0-0.1); Eosinophils Absolute Auto 0.3 K/mm3 (0-0.3); Eosinophils Percent Auto 5.1 % (0-4.4); Hematocrit 39.5 % (37.0-47.0); Hemoglobin 12.9 g/dL (12.0-15.0); Immature Granulocyte Absolute 0.02 K/mm3 (0.00-0.031); Immature Granulocyte Percent A 0.3 % (0-0.5); Lymphocytes Absolute Auto 2.08 K/mm3 (0.9-3.2); Lymphocytes Percent Auto 33.2 % (18.3-44.2); Mean Corpuscular HGB Conc 32.7 g/dl (32-36); Mean Corpuscular Hemoglobin 32.1 pg (26-34); Mean Corpuscular Volume 98.3 fl (80-100); Mean Platelet Volume 9.5 fl (7.4-10.4); Monocytes Absolute Auto 0.4 K/mm3 (0.1-0.6); Monocytes Percent Auto 6.4 % (2.6-8.5); Neutrophils Absolute Auto 3.4 K/mm3 (1.3-6.7); Platelet Count Result 309 k/mm3 (150-375); Red Blood Count 4.02 M/mm3 (4.2-5.4); Red Cell Distribution Width 12.9 % (11.5-14.5); White Blood Count 6.3 K/mm3 (4.5-10.0)
[2024-09-28 16:10] LABS: Add Urine Microscopic? NO; Appearance Urine Clear (Clear); Bilirubin Urine Negative (Negative); Blood Urine Negative (Negative); Color Urine Yellow (Yellow); Glucose Urine UA Negative (Negative); Ketones Urine Negative (Negative); Leukocyte Esterase Ur Negative LEU/UL (Negative); Nitrate Urine Negative (Negative); Protein Urine Negative (Negative); Specific Grav Ur 1.011 (1.001-1.035); Urobilinogen Urine 0.2 mg/dL (<2.0)
[2024-09-28 16:22] LABS: INR 0.9; Prothrombin Time 12.7 Seconds (11.1-14.7)
[2024-09-28 16:22] LABS: Estimated CRCL calculation 45 ml/min; Estimated Glomerular Filt Rate 56
[2024-09-28 16:23] LABS: Partial Thromboplastin Time 29.8 Seconds (22.3-36.8)
[2024-09-28 16:36] LABS: Alanine Aminotransferase 31 U/L (6-35); Albumin Level 3.9 g/dL (3.5-5.1); Alkaline Phosphatase 75 U/L (38-126); Anion Gap 8 mmol/L (4-12); Aspartate Amino Transferase 30 U/L (14-36); Bilirubin,Total 0.5 mg/dL (0.2-1.3); Blood Urea Nitrogen 20 mg/dL (7-17); Calcium 9.4 mg/dL (8.4-10.2); Carbon Dioxide 28 mmol/L (22-30); Chloride 103 mmol/L (98-107); Estimated CRCL calculation 50 ml/min; Estimated Glomerular Filt Rate > 60; Glucose 86 mg/dL (65-110); Potassium 3.6 mmol/L (3.4-5.0); Sodium 139 mmol/L (137-145)
[2024-09-28 16:46] LABS: Troponin I < 0.012 ng/mL (0.000-0.034)
[2024-09-28] MEDS: MECLIZINE HCL 25 MG TABLET PO (18:21)
[2024-09-28] MEDS: METOCLOPRAMIDE HCL 10 MG TABLET PO (18:21)
[2024-09-28 18:36] VITALS: BP 115/88; PULSE 78; RESP 12; TEMP 36.5; O2SAT 96
== END 2024-09-28 18:38 | disposition home or self-care (01) ==
PROVIDERS: Emergency Provider Physician Assistant; PCP Nurse Practitioner Family
DX: H81.10 Benign paroxysmal vertigo, unspecified ear (principal); J44.9 Chronic obstructive pulmonary disease, unspecified; E78.5 Hyperlipidemia, unspecified; E03.9 Hypothyroidism, unspecified; F33.9 Major depressive disorder, recurrent, unspecified; F17.210 Nicotine dependence, cigarettes, uncomplicated; Z86.73 Personal history of transient ischemic attack (TIA), and cerebral infarction without residual deficits; Z79.899 Other long term (current) drug therapy; Z79.82 Long term (current) use of aspirin
CPT/HCPCS: 36415; 70496; 70498; 80053; 81003; 84484; 85025; 85610; 85730; 93005; 96361; 96374; 99284; A9270; Q9967

== ENCOUNTER 2025-05-05 10:12 | Outpatient (CLI) | payer OTHER, SELFPAY ==
--- OUTSIDE RECORDS SUMMARY | 2024-12-25 05:00 | XMS_ITS ---
Author Organization [facility] Address [address] [place], [place] [id number] Care Team Providers Care Non Ferrous Material Handler Name Role Phone DELMA CHANCE Unavailable [phone] Delma De Souza Unavailable Unavailable Allergies Allergen (clinical drug ingredient) Drug/Non Drug Allergy documented on EMR Reaction Allergy Type Onset Date Status ciprofloxacin Cipro Unknown Drug Allergy Act isabella REASON FOR VISIT L foot pain and ankle Medications Medication SIG (Take, Route, Frequency, Duration) Notes Start Date End Date Status Zolpidem Tartrate 5 MG 1 tablet at bedti me as needed Orally Once a day Active buPROPion HCl ER (XL) 150 MG 1 tablet in the morning Orally Once a day Active Levothyroxine Sodium 75 MCG 1 tablet in the morning on an empty stomach Orally Once a day Active Social History Tobacco Use: Social History Observation Description Date Details (start date - stop date) Current Smoker NA - NA Tobacco Control (Standard) Question Answer Notes Tobacco use: Current every day smoker Vital Signs Height 64 in 12/25/2024 Weight 135 lbs 12/25/2024 BMI 23.17 kg/m2 12/25/2024 Height-cm 162.56 cm 12/25/2024 Weight-kg 61.24 kg 12/25/2024 Encounters Encounter Location Date Provider Diagnosis [facility] [address] [place], [place] [id number] 12/25/2024 DELMA CHANCE Posterior tibial tendinitis, left leg M76.822 ; Metatarsalgia, left foot M77.42 and Pain in left foot M79.672 Assessments Encounter Date Diagnosis (ICD Code) Assessment Notes Treatment Notes Treatment Clinical Notes Section Notes 12/25/2024 Posterior tibial tendinitis, left leg (ICD-10 - M76.822) An unna boot was applied to the affected foot. The patient was instructed to keep it dry and clean for 3-7 days. She will begin using the CAM boot that she already owns. She will wear it daily. She will rest and elevate often. ice as needed for pain. Transition to stretches and orthotics in supportive shoes in 2 weeks if pain is controlled. 12/25/2024 Metatarsalgia, left foot (ICD-10 - M77.42) padded unna boot to offload met heads left foot. 12/25/2024 Pain in left foot (ICD-10 - M79.672) Patient was instructed to try an OTC topical pain reliever/anti-i nflammatory such as Voltaren Gel, Aspercreme with Lidocaine, or Biofreeze etc over the affected areas. Spot test on hand or somewhere visible prior to starting to watch for possible rash/allergic reaction. Ice and ibuprofen as needed for pain. Plan Of Treatment Treatment Notes Assessment Notes Posterior tibial tendinitis, left leg An unna boot was applied to the affected foot. The patient was instructed to keep it dry and clean for 3-7 days. She will begin using the CAM boot that she already owns. She will wear it daily. She will rest and elevate often. ice as needed for pain. Transition to stretches and orthotics in supportive shoes in 2 weeks if pain is controlled. Metatarsalgia, left foot padded unna nina t to offload met heads left foot. Pain in left foot Patient was instructed to try an OTC topical pain reliever/anti-inflammatory such as Voltaren Gel, Aspercreme with Lidocaine, or Biofreeze etc over the affected areas. Spot test on hand or somewhere visible prior to starting to watch for possible rash/allergic reaction. Ice and ibuprofen as needed for pain. Next Appt Details Follow Up: 3 Weeks, Reason: Progress Notes * Daxa MONTOYA MDOB:1960 ( 65 yo F)Acc No.[id number]:12/25/2024 Progress Notes Patient: Daxa DE LUNA Provider: Gela CHANCE :1960 A ge:64 Y S ex:Female Date:12/25/2024 Address:[address] [place], [place] [id number] Subjective: * Chief Complaints: * 1 . L foot pain and ankle. * HPI: H PI: New Complaint P atient presents for a new patient consultation., Patient complains of an issue to pain on the top of the left foot during most of the day. Patient states that there is pain on the medial side of the left foot during the night. She states that the pain is a shooting pain. She states that she got new shoes about a month ago but has been wearing the brand for quite some time now. She does not remember any injury to the foot. , MA: tana. * ROS: G eneral / Constitutional: Patient complains of p ain. M usculoskeletal: Patient complains of j oint stiffness, arch pain, flat feet/ planus, joint pain, arthritis. P eripheral Vascular: Patient denies b lood clots in legs, cold extremities, ulceration of feet, pain / cramping in legs after exertion. P atient complains of e ash. ? S kin: Patient denies f ungal nails, athletes foot, rash, ingrown nails. N eurologic: Patient denies b alance difficulty, Numbness. ? * Medical History: L eg/Feet cramps, Thyroid Disease. * Surgical History: D enies Past Surgical History. * Hospitalization/Major Diagno stic Procedure: D enies Past Hospitalization. * Family History: F ather: , stroke, heart disease, High Blood Pressure. M other: , Respiratory Disease, lung disease, thyroid disease. * Social History: T obacco Use: T obacco Control (Standard) T obacco use: C urrent every day smoker. * Medications: T aking Zolpidem Tartrate 5 MG Tablet 1 tablet at bedtime as needed Orally Once a day , Taking buPROPion HCl ER (XL) 150 MG Tablet Extended Release 24 Hour 1 tablet in the morning Orally Once a day , Taking Levothyroxine Sodium 75 MCG Tablet 1 tablet in the morning on an empty stomach Orally Once a day , Medication List reviewed and reconciled with the patient * Allergies: C ipro: Allergy. Objective: * Vitals: S hoe Size: 7.5, Wt:135lbs, Wt-k.24 kg, Ht: 64 in, Ht-cm: 162.56 cm, BMI:23.17Index, Body Surface Area: 1.66. * Examination: C onstitutional: Constitutional T he patient is awake, alert, well developed, well groomed and well nourished.. D ermatologic: Skin findings: b ilateral, Skin is warm, dry, supple with no breaks in the skin.. M usculoskeletal: Muscle Strength M uscle strength is 5/5 in regards to dorsiflexion, plantarflexion, inversion, and eversion in bilateral lower extremities.. Foot Structure T he foot structure is noted to be, planus, left, There is calcaneus valgus and f orefoot valgus noted. Pain on palpation T here is pain on palpation of posterior tibial t endon of the left foot. T here is mild pain on open ROM to all MTPJs left without restriction in ROM and increased pain on weight bearing and push off at ball of left foot with noted too many toes sign. no fat pad atrophy.. 1st MPJ T here is a small dorsal prominence noted over 1st and 2nd left MTPJ, There is mild hypermobility noted at the 1st metatarsal cuneiform joint.. Chiquis's sign T here is a negative chiquis's sign left. N eurologic: Gross sensation G ross sensation is intact to light touch..? V ascular: Dorsalis pedis pulse: b ilateral, 2/4. Posterior tibial pulse: b ilaterally, 2/4. Capillary refill: b ilaterally, less than 3 seconds. Edema: l eft, foot, non-pitting edema, to the level of the midfoot.. X -Ray: Left Foot 3 views (AP, Medial Oblique, and lateral view) weightbearing of the left foot: N o evidence of fracture, dislocation, or other osseous lesions. Noted reduction o f the medial longitudinal arch and calcaneal inclination angle. . Assessment: * Assessment: 1. P osterior tibial tendinitis, left leg - M76.822 (Primary) 2 . M etatarsalgia, left foot - M77.42 3 . P ain in left foot - M79.672 Plan: * Treatment: 2. M etatarsalgia, left foot Notes: padded unna boot to offload met heads left foot. 3. P ain in left foot Notes: Patient was instructed to try an OTC topical pain reliever/anti-inflammatory such as Voltaren Gel, Aspercreme with Lidocaine, or Biofreeze etc over the affected areas. Spot test on hand or somewhere visible prior to starting to watch for possible rash/allergic reaction. Ice and ibuprofen as needed for pain. * Immunizations: Immunization record has been reviewed and updated. * Procedure Codes: 7 3630 X-RAY EXAM OF FOOT, Modifiers: LT , 84892 APPLICATION OF PASTE BOOT, Modifiers: LT * Preventive Medicine: Counseling: S moking: P atient counselled on the dangers of tobacco use and urged to quit. 0 12/25/2024. * Follow Up: 3 Weeks * Billing Information: * Visit Code: 62984 Office Visit, New Pt., Level 3. Modifiers: 25 * Procedure Codes: 86131 X-RAY EXAM [place] FOOT. [place]: [place] [address]93 APPLICATION OF PASTE BOOT. Modifiers: LT * Electronic signature of ELI CHANCE DPM on 05/05/2025 at 11:18 AM CDT Sign off status: Pending * Provider: Gela CHANCE Date: 0 12/25/2024 Generated for Keke arteaga/Matt/Yodit on: 0 05/05/2025 11:18 AM CDT History and Physical Notes * HPI (History of Present Illness) Category Sub-Category Detail Notes Category Not es HPI New Complaint Patient presents for a new patient consultation., Patient complains of an issue to pain on the top of the left foot during most of the day. Patient states that there is pain on the medial side of the left foot during the night. She states that the pain is a shooting pain. She states that she got new shoes about a month ago but has been wearing the brand for quite some time now. She does not remember any injury to the foot. , MA: mca Examination Category Sub-Category Detail Notes Category Not es Constitutional Constitutional The patient is a wake, alert, well developed, well groomed and well nourished. Dermatologic Skin findings: bilateral, Skin is warm, dry, supple with no breaks in the skin. Musculoskeletal Muscle Strength Muscle strength is 5/5 in regards to dorsiflexion, plantarflexion, inversion, and eversion in bilateral lower extremities. Pain on palpation There is pain on pal pation of posterior tibial tendon of the left foot. There is mild pain on open ROM to all MTPJs left without restriction in ROM and increased pain on weight bearing and push off at ball of left foot with noted too many toes sign. no fat pad atrophy. 1st MPJ There is a small joie dexter prominence noted over 1st and 2nd left MTPJ, There is mild hypermobility noted at the 1st metatarsal cuneiform joint. Foot Structure The foot structure i s noted to be, planus, left, There is calcaneus valgus and forefoot valgus noted Chiquis's sign There is a negative chiquis's sign left Neurologic Gross sensation Gross sensation is intact to light touch. X-Ray Left Foot 3 views (AP, Med ial Oblique, and lateral view) weightbearing of the left foot: No evidence of fracture, dislocation, or other osseous lesions. Noted reduction of the medial longitudinal arch and calcaneal inclination angle. Vascular Dorsalis pedis pulse: bilateral, 2/4 Posterior tibial pulse: bilaterally, 2/4 Capillary refill: bilaterally, less th an 3 seconds Edema: left, foot, non-ashley ing edema, to the level of the midfoot.
--- OUTSIDE RECORDS SUMMARY | 2025-01-08 05:10 | XMS_ITS ---
Author Organization [facility] Address [address] [place], [place] [id number] Care Team Providers Care Grinder Machine Knife Setter Name Role Phone MERONDELMA Unavailable [phone] Delma De Souza Unavailable Unavailable Allergies Allergen (clinical drug ingredient) Drug/Non Drug Allergy documented on EMR Reaction Allergy Type Onset Date Status ciprofloxacin Cipro Unknown Drug Allergy Act isabella REASON FOR VISIT unna boot follow-up Medications Medication SIG (Take, Route, Frequency, Duration) Notes Start Date End Date Status Zolpidem Tartrate 5 MG 1 tablet at bedti me as needed Orally Once a day Active Levothyroxine Sodium 75 MCG 1 tablet in the morning on an empty stomach Orally Once a day Active buPROPion HCl ER (XL) 150 MG 1 tablet in the morning Orally Once a day Active Clotrimazole 1 % 1 application Refractory Mixer ally Twice a day; Duration: 30 days 01/08/2025 07/06/2025 Active Social History Tobacco Use: Social History Observation Description Date Details (start date - stop date) Current Smoker NA - NA Tobacco Control (Standard) Question Answer Notes Tobacco use: Current every day smoker Vital Signs Height 64 in 01/08/2025 Weight 135 lbs 01/08/2025 BMI 23.17 kg/m2 01/08/2025 Height-cm 162.56 cm 01/08/2025 Weight-kg 61.24 kg 01/08/2025 Encounters Encounter Location Date Provider Diagnosis [facility] [address] [place], [place] [id number] 01/08/2025 DELMA CHANCE Posterior tibial tendinitis, left leg M76.822 ; Metatarsalgia, left foot M77.42 ; Pain in left foot M79.672 ; Tinea unguium B35.1 ; Ingrowing nail L60.0 and Pain in right foot M79.671 Assessments Encounter Date Diagnosis (ICD Code) Assessment Notes Treatment Notes Treatment Clinical Notes Section Notes 01/08/2025 Posterior tibial tendinitis, left leg (ICD-10 - M76.822) Transition from CAM boot to shoes at home then once all day at home, she will transition at work. Ice as needed for pain. Transition to stretches and orthotics in supportive shoes. 01/08/2025 Metatarsalgia, left foot (ICD-10 - M77.42) currently resolved. Will monitor. 01/08/2025 Pain in left foot (ICD-10 - M79.672) Patient was instructed to try an OTC topical pain reliever/anti-i nflammatory such as Voltaren Gel, Aspercreme with Lidocaine, or Biofreeze etc over the affected areas. Spot test on hand or somewhere visible prior to starting to watch for possible rash/allergic reaction. Ice and ibuprofen as needed for pain. 01/08/2025 Tinea unguium (ICD-10 - B35.1) 01/08/2025 Ingrowing nail (ICD-10 - L60.0) She opted not to have nail procedure today due to wanting to have left foot recovered first and will look at options for 1-2 weeks from now for matrixectomy. 01/08/2025 Pain in right foot (ICD-10 - M79.671) Dispensed foam pad and advised on soaking with epsom salt daily. Plan Of Treatment Medication Medication Name Sig Start Date Stop Date Notes Clotrimazole 1 % 1 application Refractory Mixer ally Twice a day; Duration: 30 days 01/08/2025 07/06/2025 Treatment Notes Assessment Notes Posterior tibial tendinitis, left leg Transition from CAM boot to shoes at home then once all day at home, she will transition at work. Ice as needed for pain. Transition to stretches and orthotics in supportive shoes. Metatarsalgia, left foot currently resol duane. Will monitor. Pain in left foot Patient was instructed to try an OTC topical pain reliever/anti-inflammatory such as Voltaren Gel, Aspercreme with Lidocaine, or Biofreeze etc over the affected areas. Spot test on hand or somewhere visible prior to starting to watch for possible rash/allergic reaction. Ice and ibuprofen as needed for pain. Ingrowing nail She opted not to hav e nail procedure today due to wanting to have left foot recovered first and will look at options for 1-2 weeks from now for matrixectomy. Pain in right foot Dispensed foam pad a nd advised on soaking with epsom salt daily. Progress Notes * Daxa MONTOYA MDOB:1960 ( 65 yo F)Acc No.[id number]:01/08/2025 Patient: Daxa DE LUNA Provider: Gela CHANCE :1960 A ge:64 Y S ex:Female Date:01/08/2025 Address:[address] [place], [place] [id number] Subjective: * Chief Complaints: * 1 . Unna boot follow-up. * HPI: H PI: New Complaint E stablished patient presents with a new complaint of right hallux ingrown nail which has been chronic but recently flared up.. F ollow Up Visit P arabella presents for follow-up visit for left cam boot. Patient states that she is having some medial foot pain but is not having any top of foot pain. She states that she wears the boot about 12 hours a day due to working. She states that she forgot the exercise papers, so she only remembered one exercise to do at home. , MA: [facility]. * ROS: G eneral / Constitutional: Patient complains of p ain. M usculoskeletal: Patient complains of j oint stiffness, arch pain, flat feet/ planus, joint pain, arthritis. P eripheral Vascular: Patient denies b lood clots in legs, cold extremities, ulceration of feet, pain / cramping in legs after exertion. P atient complains of e ash. ? S kin: Patient denies athletes foot, rash. P atient complains of i ngrown nails, discoloration, fungal nails. N eurologic: Patient denies b alance difficulty, Numbness. ? * Medical History: L eg/Feet cramps, Thyroid Disease. * Family History: F ather: , stroke, [...] well developed, well groomed and well nourished. D ermatologic: Skin findings: b ilateral, Skin is warm, dry, supple with no breaks in the skin. Ingrown Nail N ail is incurvated on the bilateral border of the right great toenail with mild erythema and non pitting edema. Severe pain in certain shoes.?There is no drainage. T here is pain on palpation. M usculoskeletal: Muscle Strength M uscle strength is 5/5 in regards to dorsiflexion, plantarflexion, inversion, and eversion in bilateral lower extremities.. Foot Structure T he foot structure is noted to be, planus, left, There is calcaneus valgus and f orefoot valgus noted. Pain on palpation T here is mild pain on medial central portion o f posterior tibial t endon of the left foot. T here is no longer any pain on open ROM to all MTPJs left without restriction in ROM. No pain on weight bearing and push off at ball of left foot. noted too many toes sign. no fat [...] of the midfoot.. X -Ray: Left Foot R eviewed previous xray 3 views (AP, Medial Oblique, and lateral [...] P ain in left foot - M79.672 4 .?Tinea unguium - B35.1 5 . I ngrowing nail - L60.0 6 . P ain in right foot - M79.671 Plan: * Treatment: 2. M etatarsalgia, left foot Notes: currently resolved. Will monitor. 3. P ain in left foot Notes: Patient was instructed to try an OTC topical pain reliever/anti-inflammatory such as Voltaren Gel, Aspercreme with Lidocaine, or Biofreeze etc over the affected areas. Spot test on hand or somewhere visible prior to starting to watch for possible rash/allergic reaction. Ice and ibuprofen as needed for pain. 4. T inea unguium Start Clotrimazole Cream, 1 %, 1 application, Externally, Twice a day, 30 days, 1 Unspecified, Refills 5. 5. I ngrowing nail Notes:She opted not to have nail procedure today due to wanting to have left foot recovered first and will look at options for 1-2 weeks from now for matrixectomy. 6. P ain in right foot Notes: Dispensed foam pad and advised on soaking with epsom salt daily. * Billing Information: * Visit Code: [id number] Office Visit, Est Pt., Level 3. * Procedure Codes: * Electronic signature of ELI CHANCE DPM on 05/05/2025 at 11:17 AM CDT Sign off status: Pending * Provider: Gela CHANCE Date: 0 01/08/2025 Generated for Keke arteaga/Matt/eTransilviaitting on: 0 05/05/2025 11:17 AM CDT History and Physical Notes * HPI (History of Present Illness) Category Sub-Category Detail Notes Category Not es HPI New Complaint Established fern ent presents with a new complaint of right hallux ingrown nail which has been chronic but recently flared up. Follow Up Visit Patient presents for follow-up visit for left cam boot. Patient states that she is having some medial foot pain but is not having any top of foot pain. She states that she wears the boot about 12 hours a day due to working. She states that she forgot the exercise papers, so she only remembered one exercise to do at home. , MA: [facility] Examination Category Sub-Category Detail Notes Category Not es Constitutional Constitutional The patient is a wake, alert, well developed, well groomed and well nourished Dermatologic Skin findings: bilateral, Skin is warm, dry, supple with no breaks in the skin Ingrown Nail Nail is incurvated o n the bilateral border of the right great toenail with mild erythema and non pitting edema. Severe pain in certain shoes. There is no drainage. There is pain on palpation Musculoskeletal Muscle Strength Muscle strength is 5/5 in regards to dorsiflexion, plantarflexion, inversion, and eversion in bilateral lower extremities. Pain on palpation There is mild pain o n medial central portion of posterior tibial tendon of the left foot. There is no longer any pain on open ROM to all MTPJs left without restriction in ROM. No pain on weight bearing and push off at ball of left foot. noted too many toes sign. no fat [...] intact to light touch. X-Ray Left Foot Reviewed previou s xray 3 views (AP, Medial Oblique, and lateral [...]
--- OUTSIDE RECORDS SUMMARY | 2025-05-05 11:17 | XMS_ITS | Encounter Summary ---
Author Organization [employer] Address 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
--- OUTSIDE RECORDS SUMMARY | 2025-05-05 11:17 | XMS_ITS | Encounter Summary ---
Author Organization [facility] Address 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 Gender Identity Not on file Sexual [...] ALKALINE PHOSPHATASE 70 35 - 104 U/L [facility] BILIRUBIN TOTAL 0.4 0.2 - 1.0 mg/dL [facility] CALCIUM 9.8 8.6 - 10.2 mg/dL [facility] ALBUMIN 4.2 3.4 - 4.8 g/dL [facility] CHLORIDE 105 96 - 108 mmol/L [facility] GLUCOSE 69 65 - 99 mg/dL [facility] TOTAL PROTEIN 7.1 6.3 - 8.6 g/dL [facility] POTASSIUM 3.9 3.5 - 4.9 mmol/L [facility] CREATININE 0.97(H) 0.51 - 0.95 mg/dL [facility] ALT 13 0 - 31 U/L [facility] SODIUM 141 135 - 145 mmol/L [facility] CO2 26 22 - 30 mmol/L [facility] AST 22 12 - 32 U/L [facility] BUN 8 6 - 20 mg/dL [facility] GFR, >60 >=60 mL/min/1. 7 sq meter [facility] GFR >60 >=60 mL/min/1. 7 sq meter [facility] Comment: Modification of Diet in Renal Disease (MDRD) study formula. Estimated GFR rate interpretative information for both Americans and non- Americans is available on the [facility] Intranet at: [email or web address] Select: Lab Policies and Procedures Select: Reference Ranges - GFR 01/12/2009 9:35 AM CDT 01/12/2009 9:42 AM CDT us Gogo Dominguez MD CHEMISTRY ORDERABLES Edited Performing Organization Address [facility] de Phone Number INTERFACE SYSTEM Refer to clinic/hospital department [facility] CLIA# [id number] [address] [place] [address] * T3 FREE (01/12/2009 9:35 AM CDT) T3 FREE 2.5 2.5 - 4.4 pg/mL [facility] 01/12/2009 9:35 AM CDT 01/12/2009 9:42 AM CDT us Gogo Dominguez MD CHEMISTRY ORDERABLES Final Result Performing Organization Address [facility] Phone Number INTERFACE SYSTEM Refer to clinic/hospital department [facility] CLIA# [id number] [address] [place] [address] * T4 FREE (01/12/2009 9:35 AM CDT) T4 FREE 1.3 0.9 - 1.7 ng/dL [facility] 01/12/2009 9:35 AM CDT 01/12/2009 9:42 AM CDT us Gogo Dominguez MD CHEMISTRY ORDERABLES Final Result Performing Organization Address [facility] Phone Number INTERFACE SYSTEM Refer to clinic/hospital department [facility] CLIA# [id number] [address] [place] [address] * (ABNORMAL) TSH (01/12/2009 9:35 AM CDT) TSH 13.38(H) 0.27 - 4.20 uU/mL [facility] 01/12/2009 9:35 AM CDT 01/12/2009 9:42 AM CDT us Gogo Dominguez MD CHEMISTRY ORDERABLES Final Result Performing Organization Address [facility] de Phone Number INTERFACE SYSTEM Refer to clinic/hospital department [facility] CLIA# [id number] [address] [address] * VITAMIN D 25 HYDROXY (01/12/2009 9:35 AM CDT) VITAMIN D, 25 OH, D3 43 ng/mL [facility] Comment: 25-OHD3 indicates both endogenous production and supplementation. 25-OHD2 is an indicator of exogenous sources such as diet or supplementation. Therapy is based on measurement of Total 25-OHD, with levels <20 ng/mL indicative of Vitamin D deficiency while levels between 20 ng/mL and 30 ng/mL suggest insufficiency. Optimal levels are >30 ng/mL. Lab test performed by: [facility] [facility] [address] [place] [id number] [address] SHANE OROSCO VITAMIN D, 25 OH, TOTAL 43 20 - 100 ng/mL [facility] VITAMIN D, 25 OH, D2 < 4 ng/mL [facility] 01/12/2009 9:35 AM CDT 01/12/2009 9:42 AM CDT us Gogo Dominguez MD CHEMISTRY ORDERABLES Final Result Performing Organization Address [facility] Phone Number INTERFACE SYSTEM Refer to clinic/hospital department [facility] CLIA# [id number] [address] [place] [address] documented in this encounter Visit Diagnoses Diagnosis Unspecified hypothyroidism documented in this encounter Care Teams Computer Specialist Relationship Specialty Start Date End Date Gogo Dominguez MD PCP - General Endocrinology 12/02/09 01/04/23 documented as of this encounter
--- OUTSIDE RECORDS SUMMARY | 2025-05-05 11:17 | XMS_ITS | Clinical Summary ---
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 Gender Identity Not on file Sexual Orientation Not on file Last Filed Vital Signs Vital Sign Reading Time Taken Comments Blood Pressure 134/69 07/18/2023 3:18 PM EDUCATIONAL TECHNOLOGIST Pulse 62 07/18/2023 3:18 PM EDUCATIONAL TECHNOLOGIST Temperature 36.8 C (98.3 F) 01/04/2023 4:14 PM CDT Respiratory Rate 16 01/04/2023 5:12 PM CDT Oxygen Saturation 99% 07/18/2023 3:18 PM EDUCATIONAL TECHNOLOGIST Inhaled Oxygen Concentration - - Weight 54 kg (119 lb 0.8 oz) 01/03/2023 6:11 PM CDT Height 162.6 cm (5' 4) 01/03/2023 6:11 PM CDT Body Mass Index 20.43 01/03/2023 6:11 PM CDT Plan of Treatment Health Maintenance Due Date Last Done Comments HPV/Cotest (21-29) 1983 CERVICAL CANCER SCREENING 1992 HPV/Cotest (30-65) 1992 PAP SMEAR 1992 BREAST CANCER SCREENING 2002 COLORECTAL SCREENING 2007 Colorectal Cancer Screening 2007 FIT-DNA Q 3 years 2007 FIT/FOBT Q 1 year 2007 Flex Sig/CT Colonography Q 5 years 2007 ZOSTER VACCINE (1 of 2) 2012 RSV VACCINE (60+ or ) (1 - Risk 60-74 years 1-dose series) 2022 INFLUENZA VACCINE (#1) 2025 , 05/15/2018, 05/26/2015, Additional history exists DTAP/TDAP/TD VACCINES (2 - T d or Tdap) 05/23/2028 05/23/2018 Insurance Advance Directives For more information, please contact: [phone] * Full Code (Latest Code Status on File) Date Activated Date Inactivated Comments 01/04/2023 12:26 AM 01/04/2023 9:19 PM
--- OUTSIDE RECORDS SUMMARY | 2025-05-05 11:17 | XMS_ITS | Encounter Summary ---
Author Organization [facility] Address 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 Gender Identity Not on file Sexual Orientation Not on file documented as of this encounter Plan of Treatment Not on file documented as of this encounter Procedures Procedure Name Priority Date/Time Associated Diagnosis Comments T3 FREE Routine 09/06/2006 12:05 PM SHAKE OUT WORKER TSH Routine 09/06/2006 12:05 PM SHAKE OUT WORKER T4 FREE Routine 09/06/2006 12:05 PM SHAKE OUT WORKER documented in this encounter Results * T3 FREE (09/06/2006 12:05 PM SHAKE OUT WORKER) T3 FREE 3.6 2.5 - 4.4 pg/mL INTERFACE SYSTEM 09/06/2006 12:0 5 PM SHAKE OUT WORKER Gogo Dominguez MD CHEMISTRY ORDERABLES Edited Performing Organization Address [facility] de Phone Number INTERFACE SYSTEM Refer to clinic/hospital department * (ABNORMAL) TSH (09/06/2006 12:05 PM SHAKE OUT WORKER) TSH 0.10(L) 0.27 - 4.20 uU/mL INTERFACE SYSTEM 09/06/2006 12:0 5 PM SHAKE OUT WORKER Gogo Dominguez MD CHEMISTRY ORDERABLES Edited Performing Organization Address [facility] de Phone Number INTERFACE SYSTEM Refer to clinic/hospital department * (ABNORMAL) T4 FREE (09/06/2006 12:05 PM SHAKE OUT WORKER) T4 FREE 2.0(H) 0.9 - 1.7 ng/dL INTERFACE SYSTEM 09/06/2006 12:0 5 PM SHAKE OUT WORKER Gogo Dominguez MD CHEMISTRY ORDERABLES Edited Performing Organization Address [facility] Phone Number INTERFACE SYSTEM Refer to clinic/hospital department documented in this encounter Visit Diagnoses Diagnosis Toxic nodular goiter, unspecified type, without mention of thyrotoxic crisis or storm- Primary documented in this encounter Care Teams Public Welfare Director Relationship Specialty Start Date End Date Gogo Dominguez MD PCP - General Endocrinology 12/02/09 01/04/23 documented as of this encounter
--- OUTSIDE RECORDS SUMMARY | 2025-05-05 11:17 | XMS_ITS | Encounter Summary ---
Author Organization [facility] Address 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 Gender Identity Not on file Sexual Orientation Not on file documented as of this encounter Plan of Treatment Not on file documented as of this encounter Procedures Procedure Name Priority Date/Time Associated Diagnosis Comments T3 FREE Routine 08/24/2007 12:28 PM SERVICE PROMOTER SALESPERSON TSH Routine 08/24/2007 12:28 PM SERVICE PROMOTER SALESPERSON T4 FREE Routine 08/24/2007 12:28 PM SERVICE PROMOTER SALESPERSON documented in this encounter Results * TSH (08/24/2007 12:28 PM SERVICE PROMOTER SALESPERSON) TSH 0.81 0.27 - 4.20 uU/mL INTERFACE SYSTEM 08/24/2007 12:2 8 PM SERVICE PROMOTER SALESPERSON us Gogo Dominguez MD CHEMISTRY ORDERABLES Edited Performing Organization Address City/State/[facility] Co de Phone Number INTERFACE SYSTEM Refer to clinic/hospital department * T3 FREE (08/24/2007 12:28 PM SERVICE PROMOTER SALESPERSON) T3 FREE 3.4 2.5 - 4.4 pg/mL INTERFACE SYSTEM 08/24/2007 12:2 8 PM SERVICE PROMOTER SALESPERSON us Gogo Dominguez MD CHEMISTRY ORDERABLES Edited Performing Organization Address City/[facility] Co de Phone Number INTERFACE SYSTEM Refer to clinic/hospital department * T4 FREE (08/24/2007 12:28 PM SERVICE PROMOTER SALESPERSON) T4 FREE 1.6 0.9 - 1.7 ng/dL INTERFACE SYSTEM 08/24/2007 12:2 8 PM SERVICE PROMOTER SALESPERSON us Gogo Dominguez MD CHEMISTRY ORDERABLES Edited Performing Organization Address [facility] de Phone Number INTERFACE SYSTEM Refer to clinic/hospital department documented in this encounter Visit Diagnoses Diagnosis Unspecified hypothyroidism documented in this encounter Care Teams Rejector Relationship Specialty Start Date End Date Gogo Dominguez MD PCP - General Endocrinology 12/02/09 01/04/23 documented as of this encounter
--- OUTSIDE RECORDS SUMMARY | 2025-05-05 11:17 | XMS_ITS | Encounter Summary ---
Author Organization [facility] Address 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 Gender Identity Not on file Sexual Orientation [...] CDT) TSH 0.54 0.27 - 4.20 uU/mL [facility] Blood specimen (specimen) 04/22/2008 1:08 PM CDT 04/22/2008 1:47 PM CDT us Gogo Dominguez MD CHEMISTRY ORDERABLES Final Result Performing Organization Address [facility] Phone Number INTERFACE SYSTEM Refer to clinic/hospital department [facility] CLIA# [id number] [address] [place] [address] * T3 FREE (04/22/2008 1:08 PM CDT) T3 FREE 3.1 2.5 - 4.4 pg/mL [facility] Blood specimen (specimen) 04/22/2008 1:08 PM CDT 04/22/2008 1:47 PM CDT us Gogo Dominguez MD CHEMISTRY ORDERABLES Final Result Performing Organization Address [facility] Phone Number INTERFACE SYSTEM Refer to clinic/hospital department [facility] CLIA# [id number] [address] [place] [address] * (ABNORMAL) T4 FREE (04/22/2008 1:08 PM CDT) T4 FREE 1.8(H) 0.9 - 1.7 ng/dL [facility] Blood specimen (specimen) 04/22/2008 1:08 PM CDT 04/22/2008 1:47 PM CDT us Gogo Dominguez MD CHEMISTRY ORDERABLES Final Result Performing Organization Address [facility] Phone Number INTERFACE SYSTEM Refer to clinic/hospital department [facility] CLIA# [id number] [address] [place] [address] documented in this encounter Visit Diagnoses Diagnosis Unspecified hypothyroidism documented in this encounter Care Teams Advertising Coordinator Relationship Specialty Start Date End Date Gogo Dominguez MD PCP - General Endocrinology 12/02/09 01/04/23 documented as of this encounter
--- OUTSIDE RECORDS SUMMARY | 2025-05-05 11:18 | XMS_ITS | Patient Health Record ---
Author Organization [facility] Address [address] [place], [place] [id number] Care Team Providers Care Associate Director Of Development Name Role Phone THEO CHANCE Unavailable [phone] Theo De Souza Unavailable Unavailable Allergies Allergen (clinical drug ingredient) Drug/Non Drug Allergy documented on EMR Reaction Allergy Type Onset Date Status ciprofloxacin Cipro Unknown Drug Allergy Act isabella Reason For Referral No Information Medications Medication SIG (Take, Route, Frequency, Duration) [...] day Active Clotrimazole 1 % 1 application [employer] [facility] Twice a day; Duration: 30 days 01/08/2025 07/06/2025 Active Social History Tobacco Use: Social History Observation Description Date Details (start date - stop date) Current Smoker NA - NA Tobacco Control (Standard) Question Answer Notes Tobacco use: Current every day smoker Vital Signs Height-cm 162.56 cm 01/08/2025 Weight-kg 61.24 kg 01/08/2025 Height 64 in 01/08/2025 Weight 135 lbs 01/08/2025 BMI 23.17 kg/m2 01/08/2025 Encounters Encounter Location Date Provider Diagnosis [facility] [place] [address] [place], [place] [id number] 12/25/2024 THEO CHANCE Posterior tibial tendinitis, left leg M76.822 ; Metatarsalgia, left foot M77.42 and Pain in left foot M79.672 [facility] [place] [address] [place], [place] [id number] 01/08/2025 THEO CHANCE Posterior tibial tendinitis, left leg M76.822 [...] boot to offload met heads left foot. 01/08/2025 Posterior tibial tendinitis, left leg (ICD-10 [...] Ice and ibuprofen as needed for pain. 12/25/2024 Pain in left foot (ICD-10 - [...] with epsom salt daily. Plan Of Treatment No Information Insurance Providers Payer Name Payer Address Payer Phone Subscriber Number Group Number Insured Name Patient Relationship to Insured Coverage Start Date Coverage End Date [facility] [address] [address] [place] [address] [id number] Daxa Montoya Self - patient is the insured Medical (General) History Medical History History ICD Code Leg/Feet cramps Thyroid Disease
[2025-05-05 11:29] LABS: Thyroid Stimulating Hormone Reflex 8.370 uIU/mL (0.465-4.68)
[2025-05-05 12:29] LABS: Free T4 Free Thyroxine Reflex 1.23 ng/dL (0.78-2.19)
[2025-05-05 17:35] LABS: Total Triiodothyronine (T3) 0.88 NG/ML (0.82-1.58)
== END 2025-05-05 10:13 | disposition home or self-care (01) ==
LOC: ANHLAB 10:14
PROVIDERS: PCP Nurse Practitioner Family; Visit Provider Nurse Practitioner Family
DX: E03.9 Hypothyroidism, unspecified (principal)
CPT/HCPCS: 36415; 84439; 84443; 84480

== ENCOUNTER 2025-08-05 13:26 | Outpatient (CLI) | payer OTHER, SELFPAY ==
--- NOTE | ~2025-08-05 | MR_ITS ---
EXAMINATION: MR knee LT wo con DATE: 08/05/2025 13:58 INDICATION: Left knee instability TECHNIQUE: Magnetic resonance imaging (MRI) of the left knee was performed without intravenous contrast. Sequences included coronal PD-weighted FSE, coronal PD-weighted FS FSE, sagittal T2-weighted FSE, sagittal PD-weighted FS FSE and axial PD weighted fat saturated FSE. COMPARISON: None. FINDINGS: Medial compartment: Medial meniscus is normal. Mild partial-thickness cartilage loss with smooth chondral surface along the anterior to central weightbearing medial femoral condyle. Lateral compartment: Lateral meniscus is normal. Deep chondral fissuring along the anteromedial aspect of the lateral tibial plateau along the margin of the intercondylar eminence with prominent underlying subarticular cystlike and surrounding edema- like signal change. Cartilage along the weightbearing lateral femoral condyle remains normal. Patellofemoral compartment: Deep chondral fissuring with focal mild subarticular cystlike change at the central aspect of the medial patellar facet. Less severe partial thickness chondral fissuring at the inferior aspect of the medial patellar facet. Remaining cartilage the patellofemoral compartment is normal. Ligaments and tendons: Anterior and posterior cruciate ligaments are normal. The medial collateral ligament and fibular collateral ligament complex are normal. The extensor mechanism is normal. The visualized medial and lateral hamstring tendons as well as the iliotibial band are normal. Fluid: Physiologic amount of fluid in the joint space. No loose osteochondral bodies identified. Osseous/other: Normal marrow signal. No fracture or pathologic marrow replacing process. IMPRESSION: 1. 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 Reviewed, dictated and finalized at location A. ING MACHINE OPERATOR HELPER IMPRESSION: 1. 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
== END 2025-08-05 13:27 | disposition home or self-care (01) ==
LOC: MICIMG 13:27
PROVIDERS: PCP Nurse Practitioner Family; Visit Provider Nurse Practitioner Family
DX: M17.12 Unilateral primary osteoarthritis, left knee (principal); M22.42 Chondromalacia patellae, left knee; M25.362 Other instability, left knee
CPT/HCPCS: 73721